=== PATIENT | male | born 1970 | race American Indian/Alaskan Native ===

== ENCOUNTER 2022-02-26 12:41 | Inpatient (IN) | payer SELFPAY ==
--- NOTE | 2022-02-26 13:08 | Consultation ---
Medications and Allergies Allergies Allergy/AdvReac Type Severity Reaction Status Date / Time No Known Allergies Allergy Verified 02/26/22 13:00 Physical Examination - Vital Signs Vital Signs: Vital Signs Temp Pulse Resp BP Pulse Ox 98 F 103 H 18 196/134 100 02/26/22 12:54 02/26/22 12:54 02/26/22 12:54 02/26/22 12:54 02/26/22 12:54 Assessment and Plan [facility] Consult Note # Demographics Consult Type: Acute Stroke Level 2 (4.5-24 hrs) Patient Location: Emergency Room First Name: Percy Last Name: Wero Date of : 1970 Age: 51 Gender: Male Facility: [facility] Time of Initial Page (): 02/26/2022, 12:59 Time of Return Call (): 02/26/2022, 12:59 # HPI History: 51M reportedly last well about 2 days ago. Patient is having pain and weakness in left arm and thumb on same side. Sensation is impaired on left arm and leg. # Scores Time of exam and NIHSS (): 02/26/2022, 13:05 Level of Consciousness 1a: [0] = Alert; keenly responsive LOC Questions 1b: [0] = Answers both questions correctly LOC Commands 1c: [0] = Performs both tasks correctly Best Gaze 2: [0] = Normal Visual 3: [0] = No visual loss Facial Palsy 4: [0] = Normal symmetrical movements Motor Arm Left 5a: [0] = No drift Motor Arm Right 5b: [0] = No drift Motor Leg Left 6a: [0] = No drift Motor Leg Right 6b: [0] = No drift Limb Ataxia 7: [0] = Absent Sensory 8: [1] = Otfb-st-[id number] sensory loss Best Language 9: [0] = No aphasia Dysarthria 10: [0] = Normal Extinction and Inattention 11: [0] = No abnormality NIHSS Total: 1 # Data Time Head CT personally read by me ( Time): 02/26/2022, 13:[address]: no bleed preliminarily reviewed by me, please refer to radiology read for official reading # Assessment Impression: Ischemic Stroke (Acute) # Plan Thrombolytic/Intervention: NOT IV Thrombolysis or IA Intervention candidate Thrombolytic Exclusion (< 3 hour window): time of onset unclear Thrombolytic Exclusion: > 4.5 hours Intraarterial Exclusion: clinically consistent with small vessel disease Imaging: (urgency: routine): MR Angiogram Head without contrast MR Angiogram Neck with contrast MRI Brain without contrast Diagnostic Test: echo with bubble study Medication: aspirin 81 mg PLUS clopidogrel (Plavix) 75 mg for 21 days, then monotherapy therafter start statin with goal of LDL < 70 Other: LDL < 70 If patient has any neurological deterioration please call me back immediately permissive hypertension telemetry monitoring I have discussed my recommendations with the referring provider Disposition: admit # Logistics Telemedicine: Interactive 2 way audio and visual telecommunication technology was utilized during this visit # Demographics First Name: Percy Last Name: Wero Facility: [facility]
[2022-02-26] MEDS ORDERED: CLOPIDOGREL 75 MG TAB PO ONE (13:23)
[2022-02-26] MEDS ORDERED: ASPIRIN 81 MG TAB CHEW PO ONE (13:23)
--- NOTE | 2022-02-26 13:27 | Cat Scan Report ---
CT HEAD WITHOUT CONTRAST INDICATION / CLINICAL INFORMATION: Stroke symptoms. Left-sided weakness TECHNIQUE: All CT scans at this location are performed using CT dose reduction for ALARA by means of automated e xposure control. COMPARISON: None available. FINDINGS: HEMORRHAGE: No evidence of intracranial hemorrhage or extra-axial fluid collection. EXTRA-AXIAL SPACES: Cortical sulci, sylvian fissures and basilar cisterns have an unremarkable appear ance. VENTRICULAR SYSTEM: The third and lateral ventricles are of normal size and configuration. CEREBRAL PARENCHYMA: No areas of abnormal brain parenchymal attenuation are identified. There is no i ndication of recent infarction. MIDLINE SHIFT OR HERNIATION: There is no mass effect. CEREBELLUM / BRAINSTEM: Brainstem and cerebellum have an unremarkable appearance. MIDLINE STRUCTURES:No abnormalities of the pituitary gland or pineal region are identified. INTRACRANIAL VESSELS:No abnormalities are identified on this noncontrast head CT. ORBITS: visualized portions of the orbits have an unremarkable appearance. SOFT TISSUES of HEAD: No significant abnormality. CALVARIUM: Evaluation of bone windows reveals no abnormalities. PARANASAL SINUSES / MASTOID AIR CELLS: Visualized portions of the paranasal sinuses are free from inf lammatory mucosal disease. Mastoid air cells are normally pneumatized. IMPRESSION: 1. No significant intracranial abnormality. No CT findings identified to suggest the presence of rece nt infarction. There is no indication of intercranial hemorrhage or mass lesion. Signer Name: Jaziel Hobbs MD Signed: 02/26/2022 1:23 PM Workstation Name: [id number]
--- NOTE | 2022-02-26 13:40 | XRay Report ---
CHEST 1 VIEW 02/26/2022 12:32 PM INDICATION / CLINICAL INFORMATION: r/o cva. COMPARISON: None available. FINDINGS: SUPPORT DEVICES: None. HEART / MEDIASTINUM: No significant abnormality. LUNGS / PLEURA: No significant pulmonary or pleural abnormality. No pneumothorax. ADDITIONAL FINDINGS: No significant additional findings. IMPRESSION: 1. No acute findings. Signer Name: Rahul Calabrese Jr, MD Signed: 02/26/2022 1:36 PM Workstation Name: [id number]
[2022-02-26 14:03] LABS: Basophils % (Auto) 1.2 % (0.0-1.8); Eosinophils # (Auto) 0.1 K/mm3 (0.0-0.4); Eosinophils % (Auto) 3.2 % (0.0-4.3); Hematocrit 49.3 % (35.5-45.6); Hemoglobin 16.3 gm/dl (11.8-15.2); Lymphocytes # (Auto) 0.8 K/mm3 (1.2-5.4); Lymphocytes % (Auto) 18.8 % (13.4-35.0); Mean Corpuscular HGB Conc 33 % (32-34); Mean Corpuscular Volume 94 fl (84-94); Monocytes # (Auto) 0.4 K/mm3 (0.0-0.8); Red Blood Count 5.23 M/mm3 (3.65-5.03); Red Cell Distribution Width 13.6 % (13.2-15.2)
[2022-02-26 14:07] LABS: Platelet Count 4 K/mm3 (140-440)
[2022-02-26 14:07] LABS: Mucus,Urine FEW /HPF
--- NOTE | 2022-02-26 14:14 | Emergency Department Report ---
ED General Adult HPI - General Chief complaint: Weakness Stated complaint: TINGLING LEFT ARM PAINFUL THUMB PUI?: No Time Seen by Provider: 02/26/22 13:00 Source: patient Mode of arrival: Ambulatory Limitations: No Limitations - History of Present Illness Initial comments: This is a 51-year-old male with medical history of hypertension who is not taking any medications as he is supposed to came to the ER today with concerns of left-sided upper extremity and lower extremity numbness for the past 2 days. Patient stated that the left-sided numbness starts from both tips of the finger to the left elbow. She states nothing makes it better nothing makes it worse and has been consistent. Patient denies any other symptoms. Patient current denies any fever chill night sweat dizziness blurred vision lightheadedness headache tinnitus ear pain runny nose sore throat loss of taste loss smell chest pain palpitation short breath cough abdominal pain nausea vomiting diarrhea constipation joint pain muscle pain new rash and heat or cold intolerance. Severity scale (0 -10): 2 - Related Data Allergies Allergy/AdvReac Type Severity Reaction Status Date / Time No Known Allergies Allergy Verified 02/26/22 13:00 ED Review of Systems ROS: Stated complaint: TINGLING LEFT ARM PAINFUL THUMB Other details as noted in HPI Comment: All other systems reviewed and negative Constitutional: no symptoms reported, see HPI Eyes: as per HPI ENT: as per HPI Respiratory: no symptoms reported, see HPI Cardiovascular: as per HPI Endocrine: no symptoms reported, see HPI Gastrointestinal: as per HPI Musculoskeletal: as per HPI Skin: as per HPI Neurological: numbness (Left upper extremity and lower extremity.). denies: headache, weakness, confusion, abnormal gait, vertigo Psychiatric: as per HPI Hematological/Lymphatic: as per HPI ED Past Medical Hx - Past Medical History Previous Medical History?: Yes Hx Hypertension: Yes (Patient is not taking his medication as he is supposed) ED Physical Exam - General Limitations: No Limitations General appearance: alert, in no apparent distress - Head Head exam: Present: atraumatic, normocephalic, normal inspection - Eye Eye exam: Present: normal appearance, PERRL, EOMI Pupils: Present: normal accommodation - ENT ENT exam: Present: normal exam, mucous membranes moist - Neck Neck exam: Present: normal inspection, full ROM - Respiratory Respiratory exam: Present: normal lung sounds bilaterally - Cardiovascular Cardiovascular Exam: Present: regular rate, normal rhythm, normal heart sounds - GI/Abdominal GI/Abdominal exam: Present: soft - Extremities Exam Extremities exam: Present: normal inspection, full ROM, normal capillary refill - Back Exam Back exam: Present: normal inspection, full ROM - Neurological Exam Neurological exam: Present: alert, oriented X3, CN II-XII intact - Psychiatric Psychiatric exam: Present: normal affect, normal mood - Skin Skin exam: Present: normal color - Other Other exam information: There is subjective numbness at the left upper and lower extremity I also did notice that there is left upper in flight technician strength slightly weaker than the right. ED Course Vital Signs 02/26/22 02/26/22 02/26/22 12:54 13:14 13:15 Temperature 98 F Pulse Rate 103 H 86 Respiratory 18 15 16 Rate Blood Pressure 183/119 Blood Pressure 196/134 [Right] O2 Sat by Pulse 100 94 93 Oximetry - Reevaluation(s) Reevaluation #1: 02/26/22 14:13 Per neurologist, CT unremarkable and seen the patient; recommend Plavix and also aspirin; they were given before the lab call back with critical value of platelet of 4. I will repeat CBC to reconfirm if platelet result is true vs false. Pending hospitalist to call back for admitting for further work up. 02/26/22 14:[address] Terrell who is aware of platele of 4 and would like a repeat of CBC to confirm. Dr. Terrell will come and evaluate the patient. Pending repeat platelet to see if patient okay to be admitted here as we do not have hemo/onco. Will transfuse platelet if its truely <10. 02/26/22 15:01 I will sign out my patient care to my colleague, Dr. Monk 02/26/22 15:08 SPOKE TO [facility] WHO WILL REACH OUT TO HOSPITALIST. ED Medical Decision Making - Lab Data Result diagrams: 02/26/22 13:16 02/26/22 13:16 Critical care attestation.: If time is entered above; I have spent that time in minutes in the direct care of this critically ill patient, excluding procedure time. ED Disposition Clinical Impression: TIA (transient ischemic attack), Thrombocytopenia Disposition: ADMITTED INPATIENT Is pt being admited?: Yes Does the pt Need Aspirin: Yes Condition: Stable Time of Disposition: 14:14
[2022-02-26 14:15] LABS: INR 0.92 (0.87-1.13); Partial Thromboplastin Time 26.1 Sec. (24.2-36.6); Thrombin Time 19.6 Sec. (15.1-19.6)
[2022-02-26 14:20] LABS: Color,Urine Yellow (Yellow)
[2022-02-26 14:23] LABS: Albumin 5.1 g/dL (3.9-5); Calcium 9.2 mg/dL (8.4-10.2)
[2022-02-26 14:33] LABS: Creatine Kinase MB 4.4 ng/mL (0.0-4.0)
[2022-02-26 16:10] LABS: Hematocrit 45.1 % (35.5-45.6); Hemoglobin 15.2 gm/dl (11.8-15.2); Mean Corpuscular HGB Conc 34 % (32-34); Mean Corpuscular Volume 94 fl (84-94); Platelet Count 4 K/mm3 (140-440); Red Blood Count 4.78 M/mm3 (3.65-5.03); Red Cell Distribution Width 13.8 % (13.2-15.2)
[2022-02-26] MEDS ORDERED: amLODIPine 5 MG TAB PO ONE (16:28)
[2022-02-26] MEDS ORDERED: SODIUM CHLORIDE 0.9% 500 ML 500 ML IV ONE ×2 (17:55→20:07)
--- NOTE | 2022-02-26 19:12 | Event Note ---
The pt was signed out to me by Dr. Laron Mendoza @ 03:08pm. Per his verbal report, patient has thrombocytopenia with a platelet count of 4000. He reviewed the case with Dr. Terrell who will evaluate the patient patient independently. Per the discussion is the patient's repeated platelet count remains 4000, patient will not be admitted here by him as patient will require hematology oncology services and per their discussion, the services not available at [facility]. Shortly thereafter, I spoke to Dr. Terrell. Patient's repeat CBC demonstrates persistent thrombocytopenia with a platelet count of 4000. Per his verbal report, the patient is not eligible for admission as he will need hematology oncology services and consultation, and the services are not acutely available at this hospital. I evaluated the patient independently. He is comfortable and well-appearing. He has multiple areas of ecchymosis on his extremities as well as his right upper back. Patient reports onset of ecchymoses over the past week, in addition to easy bleeding of his gums and bruising on his skin as well as persistent bleeding when he shaves his donaldson. Patient denies any other symptoms except for left thumb pain which she states has been present for the past week. He denies any new developing neurological symptoms at the time of signout and during my multiple reassessments of him. Throughout his ER course, the patient complained of having a "very dark" bowel movement. Digital rectal exam performed by me. Offshore Diver was emergency department nurse, Isabelle. Fecal occult specimen was sent to the lab and remains pending at the time of dictation of this note. ED Course: 06:57pm: [facility]: [facility] is on Diversion ; cannot accept the transfer of this patient 07:02pm: [facility]: activities coordinator reports hospital system is on total diversion except vascular and stemi emergencies; they can accept the transfer of this patient 07:04pm: [facility]: Per extrusion die coordinator, the hospital is on diversion except for trauma, stroke, and strep tricks emergency they can accept the transfer this patient 07:09pm: [facility] Transfer Center; On diversion x 1 month and accept the transfer this patient 07:11pm: [facility]: return call pending.; cannot accept the transfer of this patient 09:11pm: I was subsequently informed by a colleague that hematology oncology services are available at this hospital. I spoke to Angelica Manley, concerning the case. She confirms she is the nurse practitioner working with and that they will consult on the patient in the morning during his inpatient stay and are capable of providing necessary service for the patient for further evaluation of his thrombocytopenia. I informed her that the patient has been ordered and consented for transfusion of 2 units of platelets. However per report given to me by the patient's nurse, the patient's platelets will be arriving from the [facility] as they are not currently available at [facility]. She advises the patient undergo CT scan of his abdomen pelvis to evaluate for splenomegaly. No further recommendations provided at this time concerning emergent treatment and management of this patient from perspective of hematology oncology. MDM: 51-year-old male with a history of uncontrolled hypertension, medication noncompliance, presents for evaluation of left-sided numbness and left thumb pain and swelling. Patient was called as a stroke alert by Dr. Mendoza. See patient's electronic health record for his documented impression and plan as well as discussion with the stroke telemetry neurologist, prior to the start of this provider shift time. Patient remains persistently hypertensive. He was given amlodipine and labetalol with mild improvement of his blood pressure. He manifested no evidence of any acute hematological or neurovascular decompensation while under my care. Patient's case was subsequently reviewed with admitting toy parts former supervisor, . He has verbalized agreement to admit the patient to the hospitalist service. Please note that at the timing of the dictation of this note, the patient CT scan of abdomen pelvis with contrast remains pending.
--- NOTE | 2022-02-26 20:07 | XRay Report ---
LEFT FINGERS 3 VIEWS INDICATION / CLINICAL INFORMATION: atraumatic L thumb pain/swelling. COMPARISON: None available. FINDINGS: BONES / JOINT(S): No acute fracture or subluxation. Severe DJD first carpometacarpal joint. Mild/mode rate DJD first metatarsophalangeal joint. SOFT TISSUES: No significant abnormality. ADDITIONAL FINDINGS: None. Signer Name: Demond Nieves MD Signed: 02/26/2022 8:03 PM Workstation Name: [id number]
--- NOTE | 2022-02-26 20:51 | Consultation ---
History of Present Illness - Reason for Consult Consult date: 02/26/22 thrombocytopenia Requesting physician: WHITNEY YUSUF - History of Present Illness 51 YO Male with HTN, Medication Noncompliance, Obesity presents ED for evaluation. Patient reports "my arm is tingling and my thumb feels numb". Patient dates that he has experienced left arm tingling and left hand numbness over the past 2 days with persistent symptoms over the same timeframe. Patient knowledges noncompliance with medication and is lost to outpatient medical follow-up. Patient transported [facility] via private vehicle for further care and evaluation of the aforementioned symptoms. The patient was seen and evaluated emergency department all lab and studies reviewed. Patient found to have severe thrombocytopenia of uncertain etiology. Transfer center notified. Patient pending transfer to outside hospital for further care and evaluation. Patient has fever, chills, chest pain, palpitation, productive cough, skin rash, recent contact, known exposure to COVID-19. No prior admission for review. No medication listed for reconciliation. Past History Past Medical History: hypertension Past Surgical History: No surgical history, Other (Reviewed) Social history: single. denies: smoking, alcohol abuse, prescription drug abuse Family history: hypertension Medications and Allergies Allergies Allergy/AdvReac Type Severity Reaction Status Date / Time No Known Allergies Allergy Verified 02/26/22 13:00 Review of Systems Constitutional: no weight loss, no chills Ears, nose, mouth and throat: no ear pain, no tinnitis, no decreased hearing, no nose pain Cardiovascular: no chest pain, no rapid/irregular heart beat, no edema, no syncope, no lightheadedness Respiratory: no cough, no excessive sputum Gastrointestinal: no abdominal pain, no vomiting, no diarrhea, no change in bowel habits Genitourinary Male: no hematuria, no flank pain, no discharge, no urinary hesitancy, no nocturia Rectal: no pain, no incontinence, no bleeding Musculoskeletal: no neck stiffness, no neck pain, no arm numbness/tingling, no low back pain, no shooting leg pain Integumentary: no rash, no redness, no sores, no jaundice Neurological: numbness, tingling, no syncope, no tremors Psychiatric: no anxiety, no memory loss, no sleep disturbances, no insomnia, no hypersomnia, no change in appetite Endocrine: no cold intolerance, no polyphagia, no excessive thirst, no polydipsia, no polyuria Hematologic/Lymphatic: easy bruising, easy bleeding Allergic/Immunologic: no urticaria Exam - Constitutional Vitals: Temp Pulse Resp BP Pulse Ox 98 F 87 17 172/100 99 02/26/22 12:54 02/26/22 19:38 02/26/22 19:38 02/26/22 19:38 02/26/22 19:38 General appearance: Present: mild distress, obese - EENT Eyes: Present: PERRL ENT: hearing intact, clear oral mucosa - Neck Neck: Present: supple, normal ROM - Respiratory Respiratory effort: normal Respiratory: bilateral: CTA - Cardiovascular Heart Sounds: Present: S1 & S2. Absent: rub, click - Extremities Extremities: pulses symmetrical, No edema Peripheral Pulses: within normal limits - Abdominal General gastrointestinal: Present: soft, non-tender, non-distended, normal bowel sounds Male genitourinary: Present: normal - Integumentary Integumentary: Present: clear, warm, dry - Musculoskeletal Musculoskeletal: gait normal, strength equal bilaterally - Psychiatric Psychiatric: appropriate mood/affect, intact judgment & insight - Neurologic Neurologic: CNII-XII intact, moves all extremities Results - Labs CBC & Chem 7: 02/26/22 15:07 02/26/22 13:16 Labs: Abnormal lab results 02/26/22 02/26/22 02/26/22 Range/Units 13:16 13:16 13:16 WBC 4.0 L (4.5-11.0) K/mm3 RBC 5.23 H (3.65-5.03) M/mm3 Hgb 16.3 H (11.8-15.2) gm/dl Hct 49.3 H (35.5-45.6) % Plt Count 4 L* (140-440) K/mm3 Robertson % (Auto) 10.0 H (0.0-7.3) % Lymph # (Auto) 0.8 L (1.2-5.4) K/mm3 Creatinine 1.6 H (0.8-1.3) mg/dL Glucose 106 H (75-100) mg/dL Total Bilirubin 1.30 H (0.1-1.2) mg/dL Total Creatine Kinase 324 H (55-170) units/L CK-MB (CK-2) 4.4 H (0.0-4.0) ng/mL Albumin 5.1 H (3.9-5) g/dL 02/26/22 Range/Units 15:07 WBC 4.1 L (4.5-11.0) K/mm3 RBC (3.65-5.03) M/mm3 Hgb (11.8-15.2) gm/dl Hct (35.5-45.6) % Plt Count 4 L* (140-440) K/mm3 Robertson % (Auto) (0.0-7.3) % Lymph # (Auto) (1.2-5.4) K/mm3 Creatinine (0.8-1.3) mg/dL Glucose (75-100) mg/dL Total Bilirubin (0.1-1.2) mg/dL Total Creatine Kinase (55-170) units/L CK-MB (CK-2) (0.0-4.0) ng/mL Albumin (3.9-5) g/dL Assessment and Plan - Patient Problems (1) Thrombocytopenia Current Visit: Yes Status: Acute Plan to address problem: Patient pending transfer to tertiary [facility] for further care and evaluation of severe thrombocytopenia and hematology evaluation.
[2022-02-26] MEDS ORDERED: MORPHINE 2 MG/1 ML INJ IV PRN ×2 (21:52)
[2022-02-26] MEDS ORDERED: PROMETHAZINE 25 MG RECT SUPP PR PRN (21:52)
[2022-02-26] MEDS ORDERED: ONDANSETRON 4 MG/2 ML INJ IV PRN ×2 (21:52)
[2022-02-26] MEDS ORDERED: MAGNESIUM HYDROXIDE (MOM) ORAL LIQD UDC PO PRN ×2 (21:52)
[2022-02-26] MEDS ORDERED: ACETAMINOPHEN 325 MG TAB PO PRN ×2 (21:52)
[2022-02-26] MEDS ORDERED: MORPHINE 4 MG/1 ML INJ IV PRN ×2 (21:52)
[2022-02-26] MEDS ORDERED: METOCLOPRAMIDE 10 MG TAB PO PRN (21:52)
--- NOTE | 2022-02-26 22:07 | History and Physical Report ---
History of Present Illness Date of examination: 02/26/22 Date of admission: 02/26/2022 Chief complaint: Left sided Numbness History of present illness: 51-year-old -British male with known history of hypertension and was not been quite compliant with medication for quite some time presents to the emergency room today complaining of left sided numbness and paresthesia which started today. Numbness is more on the left thumb. He denies any difficulty with his speech and no difficulty with his gait. Patient otherwise denies any other symptoms today. Denies any headache or dizziness, denies any diaphoresis. Patient denies any sick contacts and no r ecent travel. Denies any contact with anyone with COVID-19. He has been fully vaccinated against COVID-19. Patient recently moved to [place] and has not established with any primary care physician and also does not have medical insurance at this time. He has also noticed some occasional bruises on red spots on his skin lately. Upon arrival in the emergency room today, blood pressure was quite elevated with systolic in the 180s and diastolic in the low 100s. He had a CT scan of the head which was unremarkable. Patient was evaluated by the teleneurologist and was deemed not to be a tPA candidate. Work-up in the emergency room today reveals a platelet count of 4. Creatinine was 1.6 and a mildly elevated creatinine kinase of 324. All other tests were essentially unremarkable. Heme-onc service was immediately consulted by ED ER physician and recommendation was to have a platelet transfusion. Patient will be further evaluated in the AM. Past History Past Medical History: hypertension Past Surgical History: No surgical history, Other (Reviewed) Social history: single, smoking (Current daily smoker), alcohol abuse, other (Uses Marijuana occasionally). denies: prescription drug abuse Family history: hypertension, other (Nonhodgkins lymphoma in Mother, Daughter of leukemia) Medications and Allergies Allergies Allergy/AdvReac Type Severity Reaction Status Date / Time No Known Allergies Allergy Verified 02/26/22 13:00 Active Meds: Active Medications Acetaminophen (Acetaminophen 325 Mg Tab) 650 mg PO Q4H PRN PRN Reason: Pain MILD(1-3)/Fever >100.5/JARAMILLO Acetaminophen (Acetaminophen 325 Mg Tab) 650 mg PO Q4H PRN PRN Reason: Pain, Mild (1-3) Atorvastatin Calcium (Atorvastatin 40 Mg Tab) 40 mg PO QHS CASIMIRO Bisacodyl (Bisacodyl 10 Mg Rect Supp) 10 mg PA QDAY PRN PRN Reason: Constipation Magnesium Hydroxide (Magnesium Hydroxide (Mom) Oral Liqd Udc) 30 ml PO Q4H PRN PRN Reason: Constipation Magnesium Hydroxide (Magnesium Hydroxide (Mom) Oral Liqd Udc) 30 ml PO Q4H PRN PRN Reason: Constipation Metoclopramide HCl (Metoclopramide 10 Mg Tab) 10 mg PO Q6H PRN PRN Reason: Nausea And Vomiting Morphine Sulfate (Morphine 2 Mg/1 Ml Inj) 2 mg IV Q4H PRN PRN Reason: Pain, Moderate (4-6) Morphine Sulfate (Morphine 4 Mg/1 Ml Inj) 4 mg IV Q4H PRN PRN Reason: Pain , Severe (7-10) Morphine Sulfate (Morphine 2 Mg/1 Ml Inj) 2 mg IV Q4H PRN PRN Reason: Pain, Moderate (4-6) Morphine Sulfate (Morphine 4 Mg/1 Ml Inj) 4 mg IV Q4H PRN PRN Reason: Pain , Severe (7-10) Ondansetron HCl (Ondansetron 4 Mg/2 Ml Inj) 4 mg IV Q8H PRN PRN Reason: Nausea And Vomiting Ondansetron HCl (Ondansetron 4 Mg/2 Ml Inj) 4 mg IV Q8H PRN PRN Reason: Nausea And Vomiting Promethazine HCl (Promethazine 25 Mg Rect Supp) 25 mg PA Q6H PRN PRN Reason: Nausea And Vomiting Sodium Chloride (Sodium Chloride 0.9% 10 Ml Flush Syringe) 10 ml IV BID CASIMIRO Sodium Chloride (Sodium Chloride 0.9% 10 Ml Flush Syringe) 10 ml IV PRN PRN PRN Reason: LINE FLUSH Sodium Chloride (Sodium Chloride 0.9% 10 Ml Flush Syringe) 10 ml INJ PRN PRN PRN Reason: LINE FLUSH Review of Systems Constitutional: no fever, no chills Ears, nose, mouth and throat: no nasal congestion, no sore throat Cardiovascular: no chest pain, no palpitations Respiratory: no cough, no shortness of breath Gastrointestinal: no abdominal pain, no nausea, no vomiting, no diarrhea Genitourinary Male: no dysuria, no hematuria, no flank pain Musculoskeletal: no neck pain, no low back pain Integumentary: no rash, no pruritis Neurological: parathesias, numbness (Left sided, More pronounced on left thumb), no headaches, no confusion Psychiatric: no anxiety, no depression Endocrine: no polyphagia, no polydipsia, no polyuria Exam - Constitutional Vitals: Temp Pulse Resp BP Pulse Ox 98 F 87 17 172/100 99 02/26/22 12:54 02/26/22 19:38 02/26/22 19:38 02/26/22 19:38 02/26/22 19:38 General appearance: Present: no acute distress, well-nourished - EENT Eyes: Present: PERRL, EOM intact. Absent: scleral icterus ENT: hearing intact, clear oral mucosa, dentition normal - Neck Neck: Present: supple, normal ROM - Respiratory Respiratory effort: normal Respiratory: bilateral: CTA - Cardiovascular Rhythm: regular Heart Sounds: Present: S1 & S2. Absent: gallop, systolic murmur, diastolic murmur, rub, click - Extremities Extremities: no ischemia, pulses intact, pulses symmetrical, No edema, normal temperature, normal color, Full ROM Peripheral Pulses: within normal limits - Abdominal General gastrointestinal: Present: soft, non-tender, non-distended, normal bowel sounds. Absent: mass - Integumentary Integumentary: Present: clear, warm, dry, normal turgor. Absent: rash - Musculoskeletal Musculoskeletal: strength equal bilaterally - Psychiatric Psychiatric: appropriate mood/affect, intact judgment & insight, memory intact, cooperative - Neurologic Neurologic: CNII-XII intact, no focal deficits, moves all extremities - Additional findings Additional findings: Skin: Multiple petechial spots on the chest and also over the back. HEART Score - HEART Score Troponin: Troponin T < 0.010 ng/mL (0.00-0.029) 02/26/22 13:16 Results - Labs CBC & Chem 7: 02/26/22 15:07 02/26/22 13:16 Labs: Abnormal lab results 02/26/22 02/26/22 02/26/22 Range/Units 13:16 13:16 13:16 WBC 4.0 L (4.5-11.0) K/mm3 RBC 5.23 H (3.65-5.03) M/mm3 Hgb 16.3 H (11.8-15.2) gm/dl Hct 49.3 H (35.5-45.6) % Plt Count 4 L* (140-440) K/mm3 [place] % (Auto) 10.0 H (0.0-7.3) % Lymph # (Auto) 0.8 L (1.2-5.4) K/mm3 Creatinine 1.6 H (0.8-1.3) mg/dL Glucose 106 H (75-100) mg/dL Total Bilirubin 1.30 H (0.1-1.2) mg/dL Total Creatine Kinase 324 H (55-170) units/L CK-MB (CK-2) 4.4 H (0.0-4.0) ng/mL Albumin 5.1 H (3.9-5) g/dL 02/26/22 Range/Units 15:07 WBC 4.1 L (4.5-11.0) K/mm3 RBC (3.65-5.03) M/mm3 Hgb (11.8-15.2) gm/dl Hct (35.5-45.6) % Plt Count 4 L* (140-440) K/mm3 [place] % (Auto) (0.0-7.3) % Lymph # (Auto) (1.2-5.4) K/mm3 Creatinine (0.8-1.3) mg/dL Glucose (75-100) mg/dL Total Bilirubin (0.1-1.2) mg/dL Total Creatine Kinase (55-170) units/L CK-MB (CK-2) (0.0-4.0) ng/mL Albumin (3.9-5) g/dL Assessment and Plan Assessment: 1. Left-sided numbness-etiology unclear. Patient to be worked up for possible CVA 2. Hypertensive urgency 3. Thrombocytopenia 4. Alcohol and tobacco abuse 5.PETE-baseline creatinine unknown Plan: 1. Patient admitted and placed on telemetry 2. We will schedule patient for MRI of the brain, echocardiogram and carotid Doppler 3. We will request neurology evaluation and recommendations. 4. We will also request heme-onc evaluation and recommendation 5. Patient to be transfused with platelet. We will monitor CBC. 6. Patient will be placed on antihypertensive we will monitor vital signs closely. 7. Consult placed to nephrology for evaluation of renal function. Avoid nephrotoxic agaents. DVT Prophylaxis: Sequential Compression Device Code Status: Full Code
--- NOTE | 2022-02-26 22:25 | Cat Scan Report ---
CT ABDOMEN AND PELVIS WITH CONTRAST INDICATION / CLINICAL INFORMATION: low platelets, abdominal pain, splenomegaly 100ml of [id number] . TECHNIQUE: Axial CT images were obtained through the abdomen and pelvis after 100 cc Omnipaque [address] scans at this location are performed using CT dose reduction for ALARA by means of automated exposure control. COMPARISON: None available. FINDINGS: LOWER CHEST: No significant abnormality. LIVER: A hypodensity is seen superiorly and centrally along the right hepatic lobe on image 35 of ser ies 2 measuring up to 1.5 cm, not clearly representing a simple cyst. Another smaller hypodensity wit h a more simple appearance located more inferiorly and laterally along the right hepatic lobe measure s 8 mm. No other significant abnormality. GALLBLADDER: No significant abnormality. BILE DUCTS: No significant abnormality. PANCREAS: No significant abnormality. SPLEEN: No significant abnormality. ADRENALS: No significant abnormality. RIGHT KIDNEY/URETER: 2 upper pole right renal cysts measure up to 1.6 cm without other significant ab normalities. LEFT KIDNEY/URETER: A simple appearing upper pole cyst measures up to 2.7 cm on image 61 of series 2 without other significant abnormalities. STOMACH/SMALL BOWEL: No significant abnormality. COLON: No significant abnormality. APPENDIX: No significant abnormality. PERITONEUM: No free fluid. No free air. No fluid collection. LYMPH NODES: No significant adenopathy. VASCULATURE: No significant abnormality. URINARY BLADDER: No significant abnormality. REPRODUCTIVE ORGANS: No significant abnormality. ADDITIONAL FINDINGS: None. BONES: No acute findings. There is moderate lumbar spondylosis. IMPRESSION: 1. No acute findings to explain the patient's complaints. 2. The spleen is normal in size. 3. Indeterminate right hepatic lobe hypodensities could represent cysts. A nonemergent MRI abdomen wi th and without contrast would be helpful for further characterization. 4. Additional findings as above. Signer Name: Raghav Rodriguez MD Signed: 02/26/2022 10:21 PM Workstation Name: [id number]
--- NOTE | 2022-02-26 22:52 | Hem/Onc Consultation ---
History of Present Illness - Reason for Consult Consult date: 02/26/22 Thrombocytopenia - History of Present Illness Heme data review This is a 51yo -[place] male who presented to [facility] ED with complaints of left sided numbness, more on left thumb, and paresthesia which started today P ast medical history of hypertension and noncompliance with medication. He denies difficulty with speech or gait. Denies headache dizziness, or diaphoresis. Denies sick contacts or recent travel. Denies any contact with anyone with COVID-19. He has been fully vaccinated against COVID-19. Patient recently moved to [place]. Patient also reports occasional bruises, red spots on his skin, and easy bleeding lately while shaving. Upon arrival in the emergency room today, blood pressure was elevated with systolic in the 180s and diastolic in the low 100s. CT scan of the head which was unremarkable. Patient was evaluated by the teleneurologist and was deemed not to be a tPA candidate. Work-up in the emergency room today reveals a platelet count of 4. Creatinine was 1.6 and a mildly elevated creatinine kinase of 324. All other tests were essentially unremarkable. Hematology/Oncology was consulted for evaluation of low platelets. DATA REVIEWED BELOW IMP: Thrombocytopenia, likely ITP Doubt heme malignancy Ischemic stroke ? PLAN: Transfuse 1 dose of plts STAT Start solu medrol 1mg/kg IV BID abd/pel CT to eval splenomegaly/liver cirrhosis Labs to include CBC w.dif in am, HBV, HIV, fibrinogen, cecilia, cardiolipin ab MRI Brain without contrast pending Standing order: -Transfuse 1 dose of platelets whenever plt count is less than 20 Formal consult to follow in AM. Laboratory Last Values WBC 4.1 K/mm3 (4.5-11.0) L 02/26/22 15:07 Hgb 15.2 gm/dl (11.8-15.2) 02/26/22 15:07 Hct 45.1 % (35.5-45.6) 02/26/22 15:07 MCV 94 fl (84-94) 02/26/22 15:07 Plt Count 4 K/mm3 (140-440) L* 02/26/22 15:07 [place] % (Auto) 10.0 % (0.0-7.3) H 02/26/22 13:16 Lymph # (Auto) 0.8 K/mm3 (1.2-5.4) L 02/26/22 13:16 PT 13.6 Sec. (12.2-14.9) 02/26/22 13:16 INR 0.92 (0.87-1.13) 02/26/22 13:16 APTT 26.1 Sec. (24.2-36.6) 02/26/22 13:16 Thrombin Time 19.6 Sec. (15.1-19.6) 02/26/22 13:16 Creatinine 1.6 mg/dL (0.8-1.3) H 02/26/22 13:16 Total Bilirubin 1.30 mg/dL (0.1-1.2) H 02/26/22 13:16 AST 25 units/L (5-40) 02/26/22 13:16 ALT 28 units/L (7-56) 02/26/22 13:16 Alkaline Phosphatase 55 units/L (35-129) 02/26/22 13:16 Total Creatine Kinase 324 units/L (55-170) H 02/26/22 13:16 CK-MB (CK-2) 4.4 ng/mL (0.0-4.0) H 02/26/22 13:16 Albumin 5.1 g/dL (3.9-5) H 02/26/22 13:16 Blood Type A POSITIVE 02/26/22 20:00 Antibody Screen Negative 02/26/22 20:00 Past History Past Medical History: hypertension Past Surgical History: No surgical history, Other (Reviewed) Social history: single, smoking (Current daily smoker), alcohol abuse, other (Uses Marijuana occasionally). denies: prescription drug abuse Family history: hypertension, other (Nonhodgkins lymphoma in Mother, Daughter of leukemia) Medications and Allergies Allergies Allergy/AdvReac Type Severity Reaction Status Date / Time No Known Allergies Allergy Verified 02/26/22 13:00 Active Meds: Active Medications Acetaminophen (Acetaminophen 325 Mg Tab) 650 mg PO Q4H PRN PRN Reason: Pain MILD(1-3)/Fever >100.5/[place]O Atorvastatin Calcium (Atorvastatin 40 Mg Tab) 40 mg PO QHS CASIMIRO Bisacodyl (Bisacodyl 10 Mg Rect Supp) 10 mg GA QDAY PRN PRN Reason: Constipation Magnesium Hydroxide (Magnesium Hydroxide (Mom) Oral Liqd Udc) 30 ml PO Q4H PRN PRN Reason: Constipation Methylprednisolone Sodium Succinate (Methylprednisolone Sod Succinate 125 Mg/2 Ml Inj) 100 mg IV Q12HR CASIMIRO Metoclopramide HCl (Metoclopramide 10 Mg Tab) 10 mg PO Q6H PRN PRN Reason: Nausea And Vomiting Morphine Sulfate (Morphine 2 Mg/1 Ml Inj) 2 mg IV Q4H PRN PRN Reason: Pain, Moderate (4-6) Morphine Sulfate (Morphine 4 Mg/1 Ml Inj) 4 mg IV Q4H PRN PRN Reason: Pain , Severe (7-10) Ondansetron HCl (Ondansetron 4 Mg/2 Ml Inj) 4 mg IV Q8H PRN PRN Reason: Nausea And Vomiting Promethazine HCl (Promethazine 25 Mg Rect Supp) 25 mg GA Q6H PRN PRN Reason: Nausea And Vomiting Sodium Chloride (Sodium Chloride 0.9% 10 Ml Flush Syringe) 10 ml IV BID CASIMIRO Sodium Chloride (Sodium Chloride 0.9% 10 Ml Flush Syringe) 10 ml IV PRN PRN PRN Reason: LINE FLUSH Exam - Constitutional Vitals: Last Vital Signs Temp 98 F 02/26/22 12:54 Pulse 87 02/26/22 19:38 Resp 17 02/26/22 19:38 BP 172/100 02/26/22 19:38 Pulse Ox 99 02/26/22 19:38 Results - Labs lab Results: Laboratory Results - last 24 hr 02/26/22 02/26/22 02/26/22 13:16 13:16 13:16 WBC 4.0 L RBC 5.23 H Hgb 16.3 H Hct 49.3 H MCV 94 MCH 31 MCHC 33 RDW 13.6 Plt Count 4 L* Lymph % (Auto) 18.8 [place] % (Auto) 10.0 H Eos % (Auto) 3.2 Baso % (Auto) 1.2 Lymph # (Auto) 0.8 L [place] # (Auto) 0.4 Eos # (Auto) 0.1 Baso # (Auto) 0.0 Seg Neutrophils % 66.8 Seg Neutrophils # 2.7 PT 13.6 INR 0.92 APTT 26.1 Thrombin Time 19.6 Sodium Potassium Chloride Carbon Dioxide Anion Gap BUN Creatinine Estimated GFR BUN/Creatinine Ratio Glucose Calcium Total Bilirubin AST ALT Alkaline Phosphatase Total Creatine Kinase 324 H CK-MB (CK-2) 4.4 H CK-MB (CK-2) Rel Index 1.3 Troponin T < 0.010 Total Protein Albumin Albumin/Globulin Ratio Urine Color Urine Turbidity Specific [place] (Man) Ur Protein (Man) Ur Ketones (Man) Ur Nitrite (Man) Ur Reducing Substances Urine Bilirubin (Man) Urine Ictotest Leukocyte Esterase (Man) Urine WBC (Auto) Urine RBC (Auto) U Epithel Cells (Auto) Urine RBC (Manual) Urine Mucus Blood Type Antibody Screen 02/26/22 02/26/22 02/26/22 13:16 13:49 15:07 WBC 4.1 L RBC 4.78 Hgb 15.2 Hct 45.1 MCV 94 MCH 32 MCHC 34 RDW 13.8 Plt Count 4 L* Lymph % (Auto) [place] % (Auto) Eos % (Auto) Baso % (Auto) Lymph # (Auto) [place] # (Auto) Eos # (Auto) Baso # (Auto) Seg Neutrophils % Seg Neutrophils # PT INR APTT Thrombin Time Sodium 142 Potassium 4.0 Chloride 105.1 Carbon Dioxide 22 Anion Gap 19 BUN 11 Creatinine 1.6 H Estimated GFR 46 BUN/Creatinine Ratio 7 Glucose 106 H Calcium 9.2 Total Bilirubin 1.30 H AST 25 ALT 28 Alkaline Phosphatase 55 Total Creatine Kinase CK-MB (CK-2) CK-MB (CK-2) Rel Index Troponin T Total Protein 7.1 Albumin 5.1 H Albumin/Globulin Ratio 2.6 Urine Color Yellow Urine Turbidity Clear Specific [place] (Man) 1.010 Ur Protein (Man) Negative Ur Ketones (Man) Negative Ur Nitrite (Man) Negative Ur Reducing Substances Not Reportable Urine Bilirubin (Man) Negative Urine Ictotest Not Reportable Leukocyte Esterase (Man) Negative Urine WBC (Auto) 1.0 Urine RBC (Auto) 3.0 U Epithel Cells (Auto) 1.0 Urine RBC (Manual) Negative Urine Mucus Few Blood Type Antibody Screen 02/26/22 20:00 WBC RBC Hgb Hct MCV MCH MCHC RDW Plt Count Lymph % (Auto) [place] % (Auto) Eos % (Auto) Baso % (Auto) Lymph # (Auto) [place] # (Auto) Eos # (Auto) Baso # (Auto) Seg Neutrophils % Seg Neutrophils # PT INR APTT Thrombin Time Sodium Potassium Chloride Carbon Dioxide Anion Gap BUN Creatinine Estimated GFR BUN/Creatinine Ratio Glucose Calcium Total Bilirubin AST ALT Alkaline Phosphatase Total Creatine Kinase CK-MB (CK-2) CK-MB (CK-2) Rel Index Troponin T Total Protein Albumin Albumin/Globulin Ratio Urine Color Urine Turbidity Specific [place] (Man) Ur Protein (Man) Ur Ketones (Man) Ur Nitrite (Man) Ur Reducing Substances Urine Bilirubin (Man) Urine Ictotest Leukocyte Esterase (Man) Urine WBC (Auto) Urine RBC (Auto) U Epithel Cells (Auto) Urine RBC (Manual) Urine Mucus Blood Type A POSITIVE Antibody Screen Negative
[2022-02-27] MEDS: methylPREDNISolone Sod Succinate 125 MG/2 ML INJ IV SCH ×3 (00:55→21:03)
[2022-02-27] MEDS ORDERED: SODIUM CHLORIDE 0.9% 500 ML 500 ML IV ONE (01:45)
[2022-02-27] MEDS: hydrALAZINE 20 MG/1 ML INJ IV PRN ×2 (04:23→09:18)
[2022-02-27] MEDS ORDERED: METOCLOPRAMIDE 10 MG TAB PO PRN (08:00)
[2022-02-27 08:06] LABS: BUN/Creatinine Ratio 8; Blood Urea Nitrogen 10 mg/dL (9-20); Calcium 9.7 mg/dL (8.4-10.2); Hemolysis Index 5
[2022-02-27] MEDS ORDERED: SODIUM CHLORIDE 0.9% 500 ML 500 ML ONE (08:56)
--- NOTE | 2022-02-27 10:13 | Hem/Onc Consultation ---
History of Present Illness - Reason for Consult Consult date: 02/27/22 low platelets - History of Present Illness Heme Consult Note Seen via [facility] CPT 42364 Dx ITP 51yo -[place] male Complaints of left sided numbness, more on left thumb, and paresthesia Pmhx of uncontrolled HTN Reports occasional bruises, red spots on his skin, and easy bleeding lately while shaving. Upon arrival to the ED had elevated BP, plts of 4,000, creatinine 1.6 CT scan of the head was unremarkable. Patient was evaluated by the teleneurologist. Pending brain MRI Hematology/Oncology following for low platelets. Patient examined at bedside, in no acute distress noted. Accompanied by at bedside. Both anxious to go home. Labs, scans, and plan discussed with patient and . Patient reports a tick bite a few months ago, but noticing symptoms related to Lymes disease 3 weeks ago. Now with petechiae, easy bruising, nose bleeds, gingival bleeding, and dark stools. CT Abd/Pel negative DATA REVIEWED BELOW IMP: Thrombocytopenia, likely ITP Coagulopathy, low fibrinogen APL is possible although doubt with normal wbc differential Ischemic stroke ? Lymes disease ? PLAN: Transfuse 1 dose of platelets STAT today Transfuse 10 units of cryo STAT today CBC post platelet transfusion today Continue solu medrol 1mg/kg IV BID Plan for IVIG if bleeding or plts refractory Labs to include FISH PML-ALMA DELIA to rule out APL Recommend ID consult for evaluation of potential Lyme's disease/recent tick bite . Follow HBV, cardiolipin ab MRI Brain, abd, pelvis pending Standing order: -Transfuse 1 dose of platelets whenever plt count is less than 20 Case d/w Dr. Lucian Fung. Laboratory Last Values WBC 4.1 K/mm3 (4.5-11.0) L 02/26/22 15:07 Hgb 15.2 gm/dl (11.8-15.2) 02/26/22 15:07 Hct 45.1 % (35.5-45.6) 02/26/22 15:07 MCV 94 fl (84-94) 02/26/22 15:07 Plt Count 4 K/mm3 (140-440) L* 02/26/22 15:07 Brown % (Auto) 10.0 % (0.0-7.3) H 02/26/22 13:16 Lymph # (Auto) 0.8 K/mm3 (1.2-5.4) L 02/26/22 13:16 Seg Neutrophils % 66.8 % (40.0-70.0) 02/26/22 13:16 Seg Neutrophils # 2.7 K/mm3 (1.8-7.7) 02/26/22 13:16 PT 13.6 Sec. (12.2-14.9) 02/26/22 13:16 INR 0.92 (0.87-1.13) 02/26/22 13:16 APTT 26.1 Sec. (24.2-36.6) 02/26/22 13:16 Thrombin Time 19.6 Sec. (15.1-19.6) 02/26/22 13:16 Fibrinogen 158 mg/dl (211-480) L 02/27/22 07:35 Creatinine 1.3 mg/dL (0.8-1.3) 02/27/22 07:35 Total Bilirubin 1.30 mg/dL (0.1-1.2) H 02/26/22 13:16 AST 25 units/L (5-40) 02/26/22 13:16 ALT 28 units/L (7-56) 02/26/22 13:16 Alkaline Phosphatase 55 units/L (35-129) 02/26/22 13:16 Lactate Dehydrogenase 511 units/L (91-180) H 02/26/22 21:34 Total Creatine Kinase 324 units/L (55-170) H 02/26/22 13:16 CK-MB (CK-2) 4.4 ng/mL (0.0-4.0) H 02/26/22 13:16 HIV 1&2 Antibody Rapid Non react (Non React) 02/27/22 07:35 HIV P24 Antigen Non react (Non React) 02/27/22 07:35 Blood Type A POSITIVE 02/26/22 20:00 Antibody Screen Negative 02/26/22 20:00 Direct Antiglob Test Negative 02/27/22 07:35 AMY, Poly Interpret Negative 02/27/22 07:35 Past History Past Medical History: hypertension Past Surgical History: No surgical history, Other (Reviewed) Social history: single, smoking (Current daily smoker), alcohol abuse, other (Uses Marijuana occasionally). denies: prescription drug abuse Family history: hypertension, other (Nonhodgkins lymphoma in Mother, Daughter of leukemia) Medications and Allergies Allergies Allergy/AdvReac Type Severity Reaction Status Date / Time No Known Allergies Allergy Verified 02/26/22 13:00 Home Medications Medication Instructions Recorded Confirmed Last Taken Type No Known Home Medications [No 02/27/22 02/27/22 Unknown History Reported Home Medications] Active Meds: Active Medications Acetaminophen (Acetaminophen 325 Mg Tab) 650 mg PO Q4H PRN PRN Reason: Pain MILD(1-3)/Fever >100.5/JARAMILLO Last Admin: 02/27/22 09:18 Dose: 650 mg Atorvastatin Calcium (Atorvastatin 40 Mg Tab) 40 mg PO QHS [facility] Last Admin: 02/26/22 22:00 Dose: 40 mg Bisacodyl (Bisacodyl 10 Mg Rect Supp) 10 mg CO QDAY PRN PRN Reason: Constipation Hydralazine HCl (Hydralazine 20 Mg/1 Ml Inj) 10 mg IV Q4HR PRN PRN Reason: Blood Pressure Last Admin: 02/27/22 09:18 Dose: 10 mg Magnesium Hydroxide (Magnesium Hydroxide (Mom) Oral Liqd Udc) 30 ml PO Q4H PRN PRN Reason: Constipation Methylprednisolone Sodium Succinate (Methylprednisolone Sod Succinate 125 Mg/2 Ml Inj) 100 mg IV Q12HR [facility] Last Admin: 02/27/22 09:15 Dose: 100 mg Metoclopramide HCl (Metoclopramide 10 Mg Tab) 5 mg PO Q6H PRN PRN Reason: Nausea And Vomiting Morphine Sulfate (Morphine 2 Mg/1 Ml Inj) 2 mg IV Q4H PRN PRN Reason: Pain, Moderate (4-6) Morphine Sulfate (Morphine 4 Mg/1 Ml Inj) 4 mg IV Q4H PRN PRN Reason: Pain , Severe (7-10) Ondansetron HCl (Ondansetron 4 Mg/2 Ml Inj) 4 mg IV Q8H PRN PRN Reason: Nausea And Vomiting Promethazine HCl (Promethazine 25 Mg Rect Supp) 25 mg CO Q6H PRN PRN Reason: Nausea And Vomiting Sodium Chloride (Sodium Chloride 0.9% 10 Ml Flush Syringe) 10 ml IV BID [facility] Last Admin: 02/27/22 09:15 Dose: 10 ml Sodium Chloride (Sodium Chloride 0.9% 10 Ml Flush Syringe) 10 ml IV PRN PRN PRN Reason: LINE FLUSH Exam - Constitutional Vitals: Last Vital Signs Temp 99.6 F 02/27/22 09:08 Pulse 104 H 02/27/22 09:07 Resp 18 02/27/22 09:07 BP 167/106 02/27/22 09:08 Pulse Ox 98 02/27/22 09:07 Results - Labs lab Results: Laboratory Results - last 24 hr 02/26/22 02/26/22 02/26/22 13:16 13:16 13:16 WBC 4.0 L RBC 5.23 H Hgb 16.3 H Hct 49.3 H MCV 94 MCH 31 MCHC 33 RDW 13.6 Plt Count 4 L* Lymph % (Auto) 18.8 Brown % (Auto) 10.0 H Eos % (Auto) 3.2 Baso % (Auto) 1.2 Lymph # (Auto) 0.8 L Brown # (Auto) 0.4 Eos # (Auto) 0.1 Baso # (Auto) 0.0 Seg Neutrophils % 66.8 Seg Neutrophils # 2.7 PT 13.6 INR 0.92 APTT 26.1 Thrombin Time 19.6 Fibrinogen Sodium Potassium Chloride Carbon Dioxide Anion Gap BUN Creatinine Estimated GFR BUN/Creatinine Ratio Glucose Calcium Magnesium Total Bilirubin AST ALT Alkaline Phosphatase Lactate Dehydrogenase Total Creatine Kinase 324 H CK-MB (CK-2) 4.4 H CK-MB (CK-2) Rel Index 1.3 Troponin T < 0.010 Total Protein Albumin Albumin/Globulin Ratio Urine Color Urine Turbidity Specific [place] (Man) Ur Protein (Man) Ur Ketones (Man) Ur Nitrite (Man) Ur Reducing Substances Urine Bilirubin (Man) Urine Ictotest Leukocyte Esterase (Man) Urine WBC (Auto) Urine RBC (Auto) U Epithel Cells (Auto) Urine RBC (Manual) Urine Mucus HIV 1&2 Antibody Rapid HIV P24 Antigen Blood Type Antibody Screen Direct Antiglob Test AMY, Poly Interpret 02/26/22 02/26/22 02/26/22 13:16 13:49 15:07 WBC 4.1 L RBC 4.78 Hgb 15.2 Hct 45.1 MCV 94 MCH 32 MCHC 34 RDW 13.8 Plt Count 4 L* Lymph % (Auto) Brown % (Auto) Eos % (Auto) Baso % (Auto) Lymph # (Auto) Brown # (Auto) Eos # (Auto) Baso # (Auto) Seg Neutrophils % Seg Neutrophils # PT INR APTT Thrombin Time Fibrinogen Sodium 142 Potassium 4.0 Chloride 105.1 Carbon Dioxide 22 Anion Gap 19 BUN 11 Creatinine 1.6 H Estimated GFR 46 BUN/Creatinine Ratio 7 Glucose 106 H Calcium 9.2 Magnesium Total Bilirubin 1.30 H AST 25 ALT 28 Alkaline Phosphatase 55 Lactate Dehydrogenase Total Creatine Kinase CK-MB (CK-2) CK-MB (CK-2) Rel Index Troponin T Total Protein 7.1 Albumin 5.1 H Albumin/Globulin Ratio 2.6 Urine Color Yellow Urine Turbidity Clear Specific [place] (Man) 1.010 Ur Protein (Man) Negative Ur Ketones (Man) Negative Ur Nitrite (Man) Negative Ur Reducing Substances Not Reportable Urine Bilirubin (Man) Negative Urine Ictotest Not Reportable Leukocyte Esterase (Man) Negative Urine WBC (Auto) 1.0 Urine RBC (Auto) 3.0 U Epithel Cells (Auto) 1.0 Urine RBC (Manual) Negative Urine Mucus Few HIV 1&2 Antibody Rapid HIV P24 Antigen Blood Type Antibody Screen Direct Antiglob Test AMY, Poly Interpret 02/26/22 02/26/22 02/27/22 20:00 21:34 07:35 WBC RBC Hgb Hct MCV MCH MCHC RDW Plt Count Lymph % (Auto) Brown % (Auto) Eos % (Auto) Baso % (Auto) Lymph # (Auto) Brown # (Auto) Eos # (Auto) Baso # (Auto) Seg Neutrophils % Seg Neutrophils # PT INR APTT Thrombin Time Fibrinogen Sodium 141 Potassium 3.6 Chloride 104.0 Carbon Dioxide 22 Anion Gap 19 BUN 10 Creatinine 1.3 Estimated GFR > 60 BUN/Creatinine Ratio 8 Glucose 135 H Calcium 9.7 Magnesium 2.00 Total Bilirubin AST ALT Alkaline Phosphatase Lactate Dehydrogenase 511 H Total Creatine Kinase CK-MB (CK-2) CK-MB (CK-2) Rel Index Troponin T Total Protein Albumin Albumin/Globulin Ratio Urine Color Urine Turbidity Specific [place] (Man) Ur Protein (Man) Ur Ketones (Man) Ur Nitrite (Man) Ur Reducing Substances Urine Bilirubin (Man) Urine Ictotest Leukocyte Esterase (Man) Urine WBC (Auto) Urine RBC (Auto) U Epithel Cells (Auto) Urine RBC (Manual) Urine Mucus HIV 1&2 Antibody Rapid HIV P24 Antigen Blood Type A POSITIVE Antibody Screen Negative Direct Antiglob Test AMY, Poly Interpret 02/27/22 02/27/22 02/27/22 07:35 07:35 07:35 WBC RBC Hgb Hct MCV MCH MCHC RDW Plt Count Lymph % (Auto) Brown % (Auto) Eos % (Auto) Baso % (Auto) Lymph # (Auto) Brown # (Auto) Eos # (Auto) Baso # (Auto) Seg Neutrophils % Seg Neutrophils # PT INR APTT Thrombin Time Fibrinogen 158 L Sodium Potassium Chloride Carbon Dioxide Anion Gap BUN Creatinine Estimated GFR BUN/Creatinine Ratio Glucose Calcium Magnesium Total Bilirubin AST ALT Alkaline Phosphatase Lactate Dehydrogenase Total Creatine Kinase CK-MB (CK-2) CK-MB (CK-2) Rel Index Troponin T Total Protein Albumin Albumin/Globulin Ratio Urine Color Urine Turbidity Specific [place] (Man) Ur Protein (Man) Ur Ketones (Man) Ur Nitrite (Man) Ur Reducing Substances Urine Bilirubin (Man) Urine Ictotest Leukocyte Esterase (Man) Urine WBC (Auto) Urine RBC (Auto) U Epithel Cells (Auto) Urine RBC (Manual) Urine Mucus HIV 1&2 Antibody Rapid Non react HIV P24 Antigen Non react Blood Type Antibody Screen Direct Antiglob Test Negative AMY, Poly Interpret Negative
[2022-02-27] MEDS ORDERED: NIFEdipine XL 30 MG TAB PO SCH (11:00)
--- NOTE | 2022-02-27 11:18 | Vascular Lab Report ---
DUPLEX DOPPLER ULTRASOUND CAROTID, BILATERAL INDICATION / CLINICAL INFORMATION: stroke. COMPARISON: None available. FINDINGS: RIGHT CAROTID: - PLAQUE ESTIMATE (%): < 50% - CCA velocity: 100 cm/sec. - ICA peak systolic velocity: 81 cm/sec. - ICA/CCA PSV Ratio: 0.8 Right Vertebral Artery: Antegrade flow. LEFT CAROTID: - PLAQUE ESTIMATE: < 50% - CCA velocity: 101 cm/sec. - ICA peak systolic velocity: 78 cm/sec. - ICA/CCA PSV Ratio: 0.8 Left Vertebral Artery: Antegrade flow. IMPRESSION: 1. Right Internal Carotid Artery: Less than 50% diameter stenosis. 2. Left Internal Carotid Artery: Less than 50% diameter stenosis. Velocity criteria are extrapolated from diameter data as defined by the Society of Radiologists [place] [facility] Consensus Conference, Radiology 2003; 229;340-346. NO STENOSIS (NORMAL) * Plaque = none; ICA PSV < 125 cm/sec; ICA/CCA PSV Ratio < 2.0 <50% STENOSIS * Plaque < 50%; ICA PSV < 125 cm/sec; ICA/CCA PSV Ratio < 2.0 50-69% STENOSIS * Plaque > 50%; ICA PSV = 125-230 cm/sec; ICA/CCA PSV Ratio = 2.0-4.0 >70% BUT <100% STENOSIS * Plaque > 50%; ICA PSV > 230 cm/sec; ICA/CCA PSV Ratio > 4.0 NEAR OCCLUSION * Plaque = visible lumen; ICA PSV = high/low/none; ICA/CCA PSV Ratio = variable TOTAL OCCLUSION * Plaque = no lumen; ICA PSV = none; ICA/CCA PSV Ratio = N/A Signer Name: Macho ePña MD Signed: 02/27/2022 11:14 AM Workstation Name: Banyan Branch
--- NOTE | 2022-02-27 11:21 | Progress Note ---
Assessment and Plan Assessment and plan: #Left-sided numbness of hand #CVA rule out -carotid doppler, TTE completed, pending results -MRI attempted, patient uncooperative; will reattempt later -lipid panel pending #Thrombocytopenia -Plt count 4, baseline unknown -CT head negative for bleeding; patient has petechiae and mucosal bleeds; no splenomegaly seen on CT -will transfuse for Plt <20 -etiology includes viral vs malignancy vs ITP -steroids started -Hematology/Oncology consulted, assistance appreciated #Incidental R hepatic hypodensities -seen on CT abdomen/pelvis -MRI abdomen ordered, patient claustrophobic will reattempt later #Hypertensive urgency #Hypertension #Medication non-compliance -patient with history of HTN in the past, has not taken medications in years -started nifedipine 30mg XL BID -will titrate BP medications as needed -will require medications and PCP follow up at discharge #Acute kidney injury -baseline creatinine unknown, SCr 1.6 -improved status post IVFs -likely secondary to dehydration/vasomotor nephropathy -Avoid nephrotoxins, renally dose medications -Nephrology consulted, assistance appreciated #Advanced care planning -Disease education conducted, care plan discussed, diagnoses discussed, prognosis discussed, and patient acknowledges understanding with care plan -Time: +30 min History Interval history: Patient reports improved weakness on the left side. We discussed current clinical findings. He reports that his daughter had leukemia and his dad had non-Hodgkin's lymphoma in the past. He has had bleeding from his mucous membranes and easy bruising. He denies past thrombocytopenia or related blood issues. Hospitalist Physical - Physical exam Narrative exam: GENERAL: Well-developed well-nourished. In no acute distress. HEENT: Normocephalic. Atraumatic. NECK: Supple. CHEST/LUNGS: CTAB on room air HEART/CARDIOVASCULAR: Mild tachycardia. No murmur, rubs or gallops appreciated. ABDOMEN: +BS. NT/ND. SKIN: healing ecchymoses NEURO: No focal motor deficit. Follows all commands. MUSCULOSKELETAL: No joint effusion EXTREMITIES: No cyanosis, clubbing or edema. PSYCH: Cooperative. - Constitutional Vitals: Temp Pulse Resp BP Pulse Ox 99.6 F 104 H 18 167/106 98 02/27/22 09:08 02/27/22 09:07 02/27/22 09:07 02/27/22 09:08 02/27/22 09:07 General appearance: Present: no acute distress, well-nourished HEART Score - HEART Score Troponin: Troponin T < 0.010 ng/mL (0.00-0.029) 02/26/22 13:16 Results - Labs CBC & Chem 7: 02/28/22 08:39 02/28/22 08:39 Labs: Laboratory Last Values WBC 4.1 K/mm3 (4.5-11.0) L 02/26/22 15:07 RBC 4.78 M/mm3 (3.65-5.03) 02/26/22 15:07 Hgb 15.2 gm/dl (11.8-15.2) 02/26/22 15:07 Hct 45.1 % (35.5-45.6) 02/26/22 15:07 MCV 94 fl (84-94) 02/26/22 15:07 MCH 32 pg (28-32) 02/26/22 15:07 MCHC 34 % (32-34) 02/26/22 15:07 RDW 13.8 % (13.2-15.2) 02/26/22 15:07 Plt Count 4 K/mm3 (140-440) L* 02/26/22 15:07 Lymph % (Auto) 18.8 % (13.4-35.0) 02/26/22 13:16 [place] % (Auto) 10.0 % (0.0-7.3) H 02/26/22 13:16 Eos % (Auto) 3.2 % (0.0-4.3) 02/26/22 13:16 Baso % (Auto) 1.2 % (0.0-1.8) 02/26/22 13:16 Lymph # (Auto) 0.8 K/mm3 (1.2-5.4) L 02/26/22 13:16 Young # (Auto) 0.4 K/mm3 (0.0-0.8) 02/26/22 13:16 Eos # (Auto) 0.1 K/mm3 (0.0-0.4) 02/26/22 13:16 Baso # (Auto) 0.0 K/mm3 (0.0-0.1) 02/26/22 13:16 Seg Neutrophils % 66.8 % (40.0-70.0) 02/26/22 13:16 Seg Neutrophils # 2.7 K/mm3 (1.8-7.7) 02/26/22 13:16 PT 13.6 Sec. (12.2-14.9) 02/26/22 13:16 INR 0.92 (0.87-1.13) 02/26/22 13:16 APTT 26.1 Sec. (24.2-36.6) 02/26/22 13:16 Thrombin Time 19.6 Sec. (15.1-19.6) 02/26/22 13:16 Fibrinogen 158 mg/dl (211-480) L 02/27/22 07:35 Sodium 141 mmol/L (137-145) 02/27/22 07:35 Potassium 3.6 mmol/L (3.6-5.0) 02/27/22 07:35 Chloride 104.0 mmol/L (98-107) 02/27/22 07:35 Carbon Dioxide 22 mmol/L (22-30) 02/27/22 07:35 Anion Gap 19 mmol/L 02/27/22 07:35 BUN 10 mg/dL (9-20) 02/27/22 07:35 Creatinine 1.3 mg/dL (0.8-1.3) 02/27/22 07:35 Estimated GFR > 60 ml/min 02/27/22 07:35 BUN/Creatinine Ratio 8 % 02/27/22 07:35 Glucose 135 mg/dL (75-100) H 02/27/22 07:35 Calcium 9.7 mg/dL (8.4-10.2) 02/27/22 07:35 Magnesium 2.00 mg/dL (1.7-2.3) 02/26/22 21:34 Total Bilirubin 1.30 mg/dL (0.1-1.2) H 02/26/22 13:16 AST 25 units/L (5-40) 02/26/22 13:16 ALT 28 units/L (7-56) 02/26/22 13:16 Alkaline Phosphatase 55 units/L (35-129) 02/26/22 13:16 Lactate Dehydrogenase 511 units/L (91-180) H 02/26/22 21:34 Total Creatine Kinase 324 units/L (55-170) H 02/26/22 13:16 CK-MB (CK-2) 4.4 ng/mL (0.0-4.0) H 02/26/22 13:16 CK-MB (CK-2) Rel Index 1.3 (0-4) 02/26/22 13:16 Troponin T < 0.010 ng/mL (0.00-0.029) 02/26/22 13:16 Total Protein 7.1 g/dL (6.3-8.2) 02/26/22 13:16 Albumin 5.1 g/dL (3.9-5) H 02/26/22 13:16 Albumin/Globulin Ratio 2.6 % 02/26/22 13:16 Urine Color Yellow (Yellow) 02/26/22 13:49 Urine Turbidity Clear (Clear) 02/26/22 13:49 Specific [place] (Man) 1.010 (1.003-1.030) 02/26/22 13:49 Ur Protein (Man) Negative mg/dL (Negative) 02/26/22 13:49 Ur Ketones (Man) Negative (Negative) 02/26/22 13:49 Ur Nitrite (Man) Negative (Negative) 02/26/22 13:49 Ur Reducing Substances Not Reportable 02/26/22 13:49 Urine Bilirubin (Man) Negative (Negative) 02/26/22 13:49 Urine Ictotest Not Reportable 02/26/22 13:49 Leukocyte Esterase (Man) Negative (Negative) 02/26/22 13:49 Urine WBC (Auto) 1.0 /HPF (0.0-6.0) 02/26/22 13:49 Urine RBC (Auto) 3.0 /HPF (0.0-6.0) 02/26/22 13:49 U Epithel Cells (Auto) 1.0 /HPF (0-13.0) 02/26/22 13:49 Urine RBC (Manual) Negative (Negative) 02/26/22 13:49 Urine Mucus Few /HPF 02/26/22 13:49 HIV 1&2 Antibody Rapid Non react (Non React) 02/27/22 07:35 HIV P24 Antigen Non react (Non React) 02/27/22 07:35 Blood Type A POSITIVE 02/26/22 20:00 Antibody Screen Negative 02/26/22 20:00 Direct Antiglob Test Negative 02/27/22 07:35 AMY, Poly Interpret Negative 02/27/22 07:35 Microbiology: Microbiology 02/26/22 Unknown Stool Stool Occult Blood (GERI) - Final [place]/IV: Voiding Method Toilet Active Medications - Current Medications Current Medications: Generic Name Dose Route Start Last Admin Trade Name Freq PRN Reason Stop Dose Admin Acetaminophen 650 mg 02/26/22 21:52 02/27/22 09:18 Acetaminophen 325 Mg Tab PO 650 mg Q4H PRN Administration Pain MILD(1-3)/Fever >100.5/JARAMILLO Atorvastatin Calcium 40 mg 02/26/22 22:00 02/26/22 22:00 Atorvastatin 40 Mg Tab PO 40 mg QHS CASIMIRO Administration Bisacodyl 10 mg 02/26/22 21:52 Bisacodyl 10 Mg Rect Supp SD QDAY PRN Constipation Hydralazine HCl 10 mg 02/26/22 22:48 02/27/22 09:18 Hydralazine 20 Mg/1 Ml Inj IV 10 mg Q4HR PRN Administration Blood Pressure Magnesium Hydroxide 30 ml 02/26/22 21:52 Magnesium Hydroxide (Mom) Oral Liqd Udc PO Q4H PRN Constipation Methylprednisolone Sodium Succinate 110 mg 02/27/22 22:00 Methylprednisolone Sod Succinate 125 Mg/2 Ml Inj IV Q12HR [facility] Metoclopramide HCl 5 mg 02/27/22 08:00 Metoclopramide 10 Mg Tab PO Q6H PRN Nausea And Vomiting Morphine Sulfate 2 mg 02/26/22 21:52 Morphine 2 Mg/1 Ml Inj IV Q4H PRN Pain, Moderate (4-6) Morphine Sulfate 4 mg 02/26/22 21:52 Morphine 4 Mg/1 Ml Inj IV Q4H PRN Pain , Severe (7-10) Nifedipine 30 mg 02/27/22 11:00 Nifedipine Xl 30 Mg Tab PO QDAY [facility] Ondansetron HCl 4 mg 02/26/22 21:52 Ondansetron 4 Mg/2 Ml Inj IV Q8H PRN Nausea And Vomiting Promethazine HCl 25 mg 02/26/22 21:52 Promethazine 25 Mg Rect Supp SD Q6H PRN Nausea And Vomiting Sodium Chloride 10 ml 02/26/22 22:00 02/27/22 09:15 Sodium Chloride 0.9% 10 Ml Flush Syringe IV 10 ml BID CASIMIRO Administration Sodium Chloride 10 ml 02/26/22 21:52 Sodium Chloride 0.9% 10 Ml Flush Syringe IV PRN PRN LINE FLUSH
[2022-02-27] MEDS ORDERED: LORazepam 2 MG/ML VIAL IV PRN (15:47)
[2022-02-27 16:54] LABS: Hematocrit 46.9 % (35.5-45.6); Hemoglobin 15.8 gm/dl (11.8-15.2); Mean Corpuscular HGB Conc 34 % (32-34); Mean Corpuscular Volume 94 fl (84-94); Red Cell Distribution Width 13.7 % (13.2-15.2)
[2022-02-27 17:07] LABS: Platelet Count 4 K/mm3 (140-440)
--- NOTE | 2022-02-27 18:43 | Consultation ---
History of Present Illness - Reason for Consult Consult date: 02/27/22 acute renal failure - History of Present Illness This is a 51-year-old man with history of hypertension who presented to the e mergency department with left-sided numbness and paresthesia. He was subsequently admitted for further work-up and nephrology was consulted for acute kidney injury. Patient does note frequent NSAID use. He denies history of kidney stones. He denies hematuria, dysuria and decreased urine output. Past History Past Medical History: hypertension Past Surgical History: No surgical history, Other (Reviewed) Social history: single, smoking (Current daily smoker), alcohol abuse, other (Uses Marijuana occasionally). denies: prescription drug abuse Family history: hypertension, other (Nonhodgkins lymphoma in Mother, Daughter of leukemia) Medications and Allergies Allergies Allergy/AdvReac Type Severity Reaction Status Date / Time No Known Allergies Allergy Verified 02/26/22 13:00 Home Medications Medication Instructions Recorded Confirmed Last Taken Type No Known Home Medications [No 02/27/22 02/27/22 Unknown History Reported Home Medications] Active Meds: Active Medications Acetaminophen (Acetaminophen 325 Mg Tab) 650 mg PO Q4H PRN PRN Reason: Pain MILD(1-3)/Fever >100.5/JARAMILLO Last Admin: 02/27/22 09:18 Dose: 650 mg Atorvastatin Calcium (Atorvastatin 40 Mg Tab) 40 mg PO QHS [facility] Last Admin: 02/26/22 22:00 Dose: 40 mg Bisacodyl (Bisacodyl 10 Mg Rect Supp) 10 mg MT QDAY PRN PRN Reason: Constipation Hydralazine HCl (Hydralazine 20 Mg/1 Ml Inj) 10 mg IV Q4HR PRN PRN Reason: Blood Pressure Last Admin: 02/27/22 09:18 Dose: 10 mg Lorazepam (Lorazepam 2 Mg/Ml Vial) 1 mg IV Q4H PRN PRN Reason: Anxiety Magnesium Hydroxide (Magnesium Hydroxide (Mom) Oral Liqd Udc) 30 ml PO Q4H PRN PRN Reason: Constipation Methylprednisolone Sodium Succinate (Methylprednisolone Sod Succinate 125 Mg/2 Ml Inj) 110 mg IV Q12HR [facility] Metoclopramide HCl (Metoclopramide 10 Mg Tab) 5 mg PO Q6H PRN PRN Reason: Nausea And Vomiting Morphine Sulfate (Morphine 2 Mg/1 Ml Inj) 2 mg IV Q4H PRN PRN Reason: Pain, Moderate (4-6) Morphine Sulfate (Morphine 4 Mg/1 Ml Inj) 4 mg IV Q4H PRN PRN Reason: Pain , Severe (7-10) Nifedipine (Nifedipine Xl 30 Mg Tab) 30 mg PO BID [facility] Ondansetron HCl (Ondansetron 4 Mg/2 Ml Inj) 4 mg IV Q8H PRN PRN Reason: Nausea And Vomiting Promethazine HCl (Promethazine 25 Mg Rect Supp) 25 mg MT Q6H PRN PRN Reason: Nausea And Vomiting Sodium Chloride (Sodium Chloride 0.9% 10 Ml Flush Syringe) 10 ml IV BID [facility] Last Admin: 02/27/22 09:15 Dose: 10 ml Sodium Chloride (Sodium Chloride 0.9% 10 Ml Flush Syringe) 10 ml IV PRN PRN PRN Reason: LINE FLUSH Review of Systems All systems: negative Integumentary: rash Neurological: weakness, parathesias Exam - Vital Signs Vital signs: Vital Signs Temp Pulse Resp BP Pulse Ox 98 F 103 H 18 196/134 100 02/26/22 12:54 02/26/22 12:54 02/26/22 12:54 02/26/22 12:54 02/26/22 12:54 - Physical Exam Narrative exam: Constitutional: no acute distress Head: NC/AT Neck: supple Lungs: clear to auscultation CV: RRR, no M/R/G Abdomen: soft, non-tender, bowel sounds present Back: nontender Extremities: no edema, pulses WNL Skin: intact Neuro: alert and oriented x4. Left-sided weakness. Results - Lab Results 02/27/22 16:12 02/27/22 07:35 Most recent lab results Calcium 9.7 mg/dL (8.4-10.2) 02/27/22 07:35 Magnesium 2.00 mg/dL (1.7-2.3) 02/26/22 21:34 Assessment and Plan Acute kidney injury Thrombocytopenia Renal function notable for improvement. Creatinine has improved from 1.6 to 1.3. Urinalysis unremarkable Patient does note extensive history of NSAID use, he was cautioned against further NSAID use. Check bladder scan Avoid nephrotoxins Hematology and urology note reviewed
[2022-02-27] MEDS ORDERED: IMMUNE GLOBULIN G/GLY/IGA AVG 46 10 GM/100 ML VIAL IV ONE (19:04)
[2022-02-27] MEDS ORDERED: IGA AVG IV SCH (21:00)
[2022-02-27] MEDS ORDERED: GLY IV SCH (21:00)
[2022-02-27] MEDS ORDERED: IMMUNE GLOBUL IV SCH (21:00)
[2022-02-27] MEDS ORDERED: [UNRECOGNIZED DRUG - OTHER] IV SCH (21:00)
[2022-02-27] MEDS: NIFEdipine XL 30 MG TAB PO SCH (21:03)
[2022-02-27 22:21] LABS: Total Cells Counted 100
[2022-02-27 22:22] LABS: Platelet Estimate Appears Decreased; RBC Morphology Normal
[2022-02-28] MEDS ORDERED: SODIUM CHLORIDE 0.9% 250ML 250 ML IV ONE (04:24)
[2022-02-28 09:02] LABS: Hematocrit 43.3 % (35.5-45.6); Hemoglobin 14.3 gm/dl (11.8-15.2); Mean Corpuscular HGB Conc 33 % (32-34); Mean Corpuscular Volume 95 fl (84-94); Red Blood Count 4.55 M/mm3 (3.65-5.03); Red Cell Distribution Width 13.9 % (13.2-15.2)
[2022-02-28] MEDS: methylPREDNISolone Sod Succinate 125 MG/2 ML INJ IV SCH (09:03)
[2022-02-28] MEDS: NIFEdipine XL 30 MG TAB PO SCH (09:03)
[2022-02-28 09:14] LABS: Platelet Count 10 K/mm3 (140-440)
[2022-02-28 09:20] LABS: BUN/Creatinine Ratio 12; Blood Urea Nitrogen 16 mg/dL (9-20); Calcium 9.3 mg/dL (8.4-10.2); Hemolysis Index 14
[2022-02-28 09:34] LABS: Chol/HDL Ratio 3.19 %; HDL Cholesterol 63 mg/dL (40-59); LDL Cholesterol,Direct 126 mg/dL (50-130)
--- NOTE | 2022-02-28 11:39 | Progress Note ---
Hospitalist Physical - Constitutional Vitals: Temp Pulse Resp BP Pulse Ox 98.1 F 102 H 18 155/107 98 02/28/22 06:47 02/28/22 06:47 02/28/22 06:47 02/28/22 06:47 02/28/22 08:52 General appearance: Present: no acute distress, well-nourished HEART Score - HEART Score Troponin: Troponin T < 0.010 ng/mL (0.00-0.029) 02/26/22 13:16 Results - Labs CBC & Chem 7: 02/28/22 08:39 02/28/22 08:39 Labs: Laboratory Last Values WBC 11.6 K/mm3 (4.5-11.0) H 02/28/22 08:39 RBC 4.55 M/mm3 (3.65-5.03) 02/28/22 08:39 Hgb 14.3 gm/dl (11.8-15.2) 02/28/22 08:39 Hct 43.3 % (35.5-45.6) 02/28/22 08:39 MCV 95 fl (84-94) H 02/28/22 08:39 MCH 31 pg (28-32) 02/28/22 08:39 MCHC 33 % (32-34) 02/28/22 08:39 RDW 13.9 % (13.2-15.2) 02/28/22 08:39 Plt Count 10 K/mm3 (140-440) L* D 02/28/22 08:39 Lymph % (Auto) 18.8 % (13.4-35.0) 02/26/22 13:16 [place] % (Auto) 10.0 % (0.0-7.3) H 02/26/22 13:16 Eos % (Auto) 3.2 % (0.0-4.3) 02/26/22 13:16 Baso % (Auto) 1.2 % (0.0-1.8) 02/26/22 13:16 Lymph # (Auto) 0.8 K/mm3 (1.2-5.4) L 02/26/22 13:16 [place] # (Auto) 0.4 K/mm3 (0.0-0.8) 02/26/22 13:16 Eos # (Auto) 0.1 K/mm3 (0.0-0.4) 02/26/22 13:16 Baso # (Auto) 0.0 K/mm3 (0.0-0.1) 02/26/22 13:16 Add Manual Diff Complete 02/27/22 16:12 Total Counted 100 02/27/22 16:12 Seg Neutrophils % Internet Application Developer 02/27/22 16:12 Band Neutrophils % 0 % 02/27/22 16:12 Lymphocytes % (Manual) 6.0 % (13.4-35.0) L 02/27/22 16:12 Reactive Lymphs % (Man) 0 % 02/27/22 16:12 Monocytes % (Manual) 1.0 % (0.0-7.3) 02/27/22 16:12 Metamyelocytes % 0 % 02/27/22 16:12 Myelocytes % 0 % 02/27/22 16:12 Promyelocytes % 0 % 02/27/22 16:12 Blast Cells % 0 % 02/27/22 16:12 Nucleated RBC % Not Reportable 02/27/22 16:12 Seg Neutrophils # 2.7 K/mm3 (1.8-7.7) 02/26/22 13:16 Seg Neutrophils # Man 8.0 K/mm3 (1.8-7.7) H 02/27/22 16:12 Band Neutrophils # 0.0 K/mm3 02/27/22 16:12 Lymphocytes # (Manual) 0.5 K/mm3 (1.2-5.4) L 02/27/22 16:12 Abs React Lymphs (Man) 0.0 K/mm3 02/27/22 16:12 Monocytes # (Manual) 0.1 K/mm3 (0.0-0.8) 02/27/22 16:12 Eosinophils # (Manual) 0.0 K/mm3 (0.0-0.4) 02/27/22 16:12 Basophils # (Manual) 0.0 K/mm3 (0.0-0.1) 02/27/22 16:12 Metamyelocytes # 0.0 K/mm3 02/27/22 16:12 Myelocytes # 0.0 K/mm3 02/27/22 16:12 Promyelocytes # 0.0 K/mm3 02/27/22 16:12 Blast Cells # 0.0 K/mm3 02/27/22 16:12 WBC Morphology Not Reportable 02/27/22 16:12 Hypersegmented Neuts Not Reportable 02/27/22 16:12 Hyposegmented Neuts Not Reportable 02/27/22 16:12 Hypogranular Neuts Not Reportable 02/27/22 16:12 Smudge Cells Not Reportable 02/27/22 16:12 Toxic Granulation Not Reportable 02/27/22 16:12 Toxic Vacuolation Not Reportable 02/27/22 16:12 Dohle Bodies Not Reportable 02/27/22 16:12 Pelger-Huet Anomaly Not Reportable 02/27/22 16:12 Mahsa Rods Not Reportable 02/27/22 16:12 Platelet Estimate Appears decreased 02/27/22 16:12 Clumped Platelets Not Reportable 02/27/22 16:12 Plt Clumps, EDTA Not Reportable 02/27/22 16:12 Large Platelets Not Reportable 02/27/22 16:12 Giant Platelets Not Reportable 02/27/22 16:12 Platelet Satelliting Not Reportable 02/27/22 16:12 Plt Morphology Comment Not Reportable 02/27/22 16:12 RBC Morphology Normal 02/27/22 16:12 Dimorphic RBCs Not Reportable 02/27/22 16:12 Polychromasia Not Reportable 02/27/22 16:12 Hypochromasia Not Reportable 02/27/22 16:12 Poikilocytosis Not Reportable 02/27/22 16:12 Anisocytosis Not Reportable 02/27/22 16:12 Microcytosis Not Reportable 02/27/22 16:12 Macrocytosis Not Reportable 02/27/22 16:12 Spherocytes Not Reportable 02/27/22 16:12 Pappenheimer Bodies Not Reportable 02/27/22 16:12 Sickle Cells Not Reportable 02/27/22 16:12 Target Cells Not Reportable 02/27/22 16:12 Tear Drop Cells Not Reportable 02/27/22 16:12 Ovalocytes Not Reportable 02/27/22 16:12 Helmet Cells Not Reportable 02/27/22 16:12 [place] Bodies Not Reportable 02/27/22 16:12 [place] Rings Not Reportable 02/27/22 16:12 Grace Cells Not Reportable 02/27/22 16:12 Bite Cells Not Reportable 02/27/22 16:12 Crenated Cell Not Reportable 02/27/22 16:12 Elliptocytes Not Reportable 02/27/22 16:12 Acanthocytes (Spur) Not Reportable 02/27/22 16:12 Rouleaux Not Reportable 02/27/22 16:12 Hemoglobin C Crystals Not Reportable 02/27/22 16:12 Schistocytes Not Reportable 02/27/22 16:12 Malaria parasites Not Reportable 02/27/22 16:12 [place]o Bodies Not Reportable 02/27/22 16:12 Hem Pathologist Commnt No 02/27/22 16:12 PT 13.6 Sec. (12.2-14.9) 02/26/22 13:16 INR 0.92 (0.87-1.13) 02/26/22 13:16 APTT 26.1 Sec. (24.2-36.6) 02/26/22 13:16 Thrombin Time 19.6 Sec. (15.1-19.6) 02/26/22 13:16 Fibrinogen 158 mg/dl (211-480) L 02/27/22 07:35 Sodium 138 mmol/L (137-145) 02/28/22 08:39 Potassium 3.8 mmol/L (3.6-5.0) 02/28/22 08:39 Chloride 101.6 mmol/L (98-107) 02/28/22 08:39 Carbon Dioxide 22 mmol/L (22-30) 02/28/22 08:39 Anion Gap 18 mmol/L 02/28/22 08:39 BUN 16 mg/dL (9-20) 02/28/22 08:39 Creatinine 1.3 mg/dL (0.8-1.3) 02/28/22 08:39 Estimated GFR > 60 ml/min 02/28/22 08:39 BUN/Creatinine Ratio 12 % 02/28/22 08:39 Glucose 163 mg/dL (75-100) H 02/28/22 08:39 Calcium 9.3 mg/dL (8.4-10.2) 02/28/22 08:39 Magnesium 2.00 mg/dL (1.7-2.3) 02/26/22 21:34 Total Bilirubin 1.30 mg/dL (0.1-1.2) H 02/26/22 13:16 AST 25 units/L (5-40) 02/26/22 13:16 ALT 28 units/L (7-56) 02/26/22 13:16 Alkaline Phosphatase 55 units/L (35-129) 02/26/22 13:16 Lactate Dehydrogenase 511 units/L (91-180) H 02/26/22 21:34 Total Creatine Kinase 324 units/L (55-170) H 02/26/22 13:16 CK-MB (CK-2) 4.4 ng/mL (0.0-4.0) H 02/26/22 13:16 CK-MB (CK-2) Rel Index 1.3 (0-4) 02/26/22 13:16 Troponin T < 0.010 ng/mL (0.00-0.029) 02/26/22 13:16 Total Protein 7.1 g/dL (6.3-8.2) 02/26/22 13:16 Albumin 5.1 g/dL (3.9-5) H 02/26/22 13:16 Albumin/Globulin Ratio 2.6 % 02/26/22 13:16 Triglycerides 80 mg/dL (2-149) 02/28/22 08:39 Cholesterol 201 mg/dL (50-199) H 02/28/22 08:39 LDL Cholesterol Direct 126 mg/dL (50-130) 02/28/22 08:39 HDL Cholesterol 63 mg/dL (40-59) H 02/28/22 08:39 Cholesterol/HDL Ratio 3.19 % 02/28/22 08:39 Urine Color Yellow (Yellow) 02/26/22 13:49 Urine Turbidity Clear (Clear) 02/26/22 13:49 Specific [place] (Man) 1.010 (1.003-1.030) 02/26/22 13:49 Ur Protein (Man) Negative mg/dL (Negative) 02/26/22 13:49 Ur Ketones (Man) Negative (Negative) 02/26/22 13:49 Ur Nitrite (Man) Negative (Negative) 02/26/22 13:49 Ur Reducing Substances Not Reportable 02/26/22 13:49 Urine Bilirubin (Man) Negative (Negative) 02/26/22 13:49 Urine Ictotest Not Reportable 02/26/22 13:49 Leukocyte Esterase (Man) Negative (Negative) 02/26/22 13:49 Urine WBC (Auto) 1.0 /HPF (0.0-6.0) 02/26/22 13:49 Urine RBC (Auto) 3.0 /HPF (0.0-6.0) 02/26/22 13:49 U Epithel Cells (Auto) 1.0 /HPF (0-13.0) 02/26/22 13:49 Urine RBC (Manual) Negative (Negative) 02/26/22 13:49 Urine Mucus Few /HPF 02/26/22 13:49 Coronavirus (PCR) Negative (Negative) 02/27/22 09:15 HIV 1&2 Antibody Rapid Non react (Non React) 02/27/22 07:35 HIV P24 Antigen Non react (Non React) 02/27/22 07:35 Blood Type A POSITIVE 02/26/22 20:00 Antibody Screen Negative 02/26/22 20:00 Direct Antiglob Test Negative 02/27/22 07:35 AMY, Poly Interpret Negative 02/27/22 07:35 [place]/IV: Voiding Method Toilet Active Medications - Current Medications Current Medications: Generic Name Dose Route Start Last Admin Trade Name Freq PRN Reason Stop Dose Admin Acetaminophen 650 mg 02/26/22 21:52 02/27/22 09:18 Acetaminophen 325 Mg Tab PO 650 mg Q4H PRN Administration Pain MILD(1-3)/Fever >100.5/JARAMILLO Atorvastatin Calcium 40 mg 02/26/22 22:00 02/27/22 21:03 Atorvastatin 40 Mg Tab PO 40 mg QHS CASIMIRO Administration Bisacodyl 10 mg 02/26/22 21:52 Bisacodyl 10 Mg Rect Supp VT QDAY PRN Constipation Hydralazine HCl 10 mg 02/26/22 22:48 02/27/22 09:18 Hydralazine 20 Mg/1 Ml Inj IV 10 mg Q4HR PRN Administration Blood Pressure Lorazepam 1 mg 02/27/22 15:47 Lorazepam 2 Mg/Ml Vial IV Q4H PRN Anxiety Magnesium Hydroxide 30 ml 02/26/22 21:52 Magnesium Hydroxide (Mom) Oral Liqd Udc PO Q4H PRN Constipation Methylprednisolone Sodium Succinate 110 mg 02/27/22 22:00 02/28/22 09:03 Methylprednisolone Sod Succinate 125 Mg/2 Ml Inj IV 110 mg Q12HR CASIMIRO Administration Metoclopramide HCl 5 mg 02/27/22 08:00 Metoclopramide 10 Mg Tab PO Q6H PRN Nausea And Vomiting Morphine Sulfate 2 mg 02/26/22 21:52 Morphine 2 Mg/1 Ml Inj IV Q4H PRN Pain, Moderate (4-6) Morphine Sulfate 4 mg 02/26/22 21:52 Morphine 4 Mg/1 Ml Inj IV Q4H PRN Pain , Severe (7-10) Nifedipine 30 mg 02/27/22 22:00 02/28/22 09:03 Nifedipine Xl 30 Mg Tab PO 30 mg BID CASIMIRO Administration Ondansetron HCl 4 mg 02/26/22 21:52 Ondansetron 4 Mg/2 Ml Inj IV Q8H PRN Nausea And Vomiting Promethazine HCl 25 mg 02/26/22 21:52 Promethazine 25 Mg Rect Supp VT Q6H PRN Nausea And Vomiting Sodium Chloride 10 ml 02/26/22 22:00 02/28/22 09:03 Sodium Chloride 0.9% 10 Ml Flush Syringe IV 10 ml BID CASIMIRO Administration Sodium Chloride 10 ml 02/26/22 21:52 Sodium Chloride 0.9% 10 Ml Flush Syringe IV PRN PRN LINE FLUSH Nutrition/Malnutrition Assess - Dietary Evaluation Nutrition/Malnutrition Findings: Nutrition Notes Start: 02/27/22 14:52 Freq: Status: Active Protocol: Document 02/27/22 14:52 LAKEISHA (Rec: 02/27/22 15:03 LAKEISHA [id number]) Nutrition Notes Need for Assessment generated from: MD Order,Education Initial or Follow up Brief Note Current Diagnosis Acute Kidney Injury, Hypertension Other Pertinent Diagnosis L-Sided Weakness r/o CVA, Thrombocytopenia. Current Diet Cardiac Diet (since B 02/27). Height 6 ft 2 in Weight 108.862 kg [place] Body Weight (kg) 86.36 BMI 30.8 Intake Prior to Admission Good Weight change and time frame Pt denies having loss body weight [place]. Weight Status Obese Subjective/Other Information RD consult for nutrition education assessment. Pt's PO intake of meals has been Good (100%) and well tolerated, according to ADL notes. Pt is on Room Air, O2 saturation @ 100%, according to Physical Assessment history notes. Pt still in critical condition , not a candidate for Nutrition Education at the time, will assess feasibility on F/U. Percent of energy/protein needs met: Prescribed Cardiac Diet provides for energy/protein needs (2,230 Kcal/85 g) during LOS. Nutrition Intervention Follow-Up By: 03/06/22 Additional Comments Nutrition education will be provided at F/U, if feasible. Continue monitoring food tolerance, %PO intake of meals , and BM.
[2022-02-28 11:58] VITALS: BP 182/117
--- NOTE | 2022-02-28 12:00 | Consultation ---
History of Present Illness - Reason for Consult Consult date: 02/28/22 recent tick bite Requesting physician: DOIRS HAMMER - History of Present Illness The patient is a 51-year-old male with hypertension, obesity, medical noncompliance, not on any medications was admitted to the hospital on 02/27/2020 with left upper extremity and lower extremity numbness for the last 2 days. Denies any fever or chills. Evaluated by telemetry neurology, no obvious stroke was identified, no tPA administered. CT head did not show any significant intracranial lesion. Upon evaluation, found to have leukopenia and severe thrombocytopenia. CT abdomen and pelvis was done, spleen was normal in size, indeterminate right hepatic lobe hypodensities representing possible cysts were noted, no other acute findings. Patient reported history of tick bite a few mon ths ago, hence infectious diseases was consulted. Had mild creatinine elevation which is better. AST and ALT are normal. Review of Systems: Per HPI Past History Past Medical History: hypertension Past Surgical History: No surgical history, Other (Reviewed) Social history: single, smoking (Current daily smoker), alcohol abuse, other (Uses Marijuana occasionally). denies: prescription drug abuse Family history: hypertension, other (Nonhodgkins lymphoma in Mother, Daughter of leukemia) Medications and Allergies Allergies Allergy/AdvReac Type Severity Reaction Status Date / Time No Known Allergies Allergy Verified 02/26/22 13:00 Home Medications Medication Instructions Recorded Confirmed Last Taken Type No Known Home Medications [No 02/27/22 02/27/22 Unknown History Reported Home Medications] Active Meds: Active Medications Acetaminophen (Acetaminophen 325 Mg Tab) 650 mg PO Q4H PRN PRN Reason: Pain MILD(1-3)/Fever >100.5/JARAMILLO Last Admin: 02/27/22 09:18 Dose: 650 mg Atorvastatin Calcium (Atorvastatin 40 Mg Tab) 40 mg PO QHS CASIMIRO Last Admin: 02/27/22 21:03 Dose: 40 mg Bisacodyl (Bisacodyl 10 Mg Rect Supp) 10 mg NC QDAY PRN PRN Reason: Constipation Hydralazine HCl (Hydralazine 20 Mg/1 Ml Inj) 10 mg IV Q4HR PRN PRN Reason: Blood Pressure Last Admin: 02/27/22 09:18 Dose: 10 mg Lorazepam (Lorazepam 2 Mg/Ml Vial) 1 mg IV Q4H PRN PRN Reason: Anxiety Magnesium Hydroxide (Magnesium Hydroxide (Mom) Oral Liqd Udc) 30 ml PO Q4H PRN PRN Reason: Constipation Methylprednisolone Sodium Succinate (Methylprednisolone Sod Succinate 125 Mg/2 Ml Inj) 110 mg IV Q12HR [facility] Last Admin: 02/28/22 09:03 Dose: 110 mg Metoclopramide HCl (Metoclopramide 10 Mg Tab) 5 mg PO Q6H PRN PRN Reason: Nausea And Vomiting Morphine Sulfate (Morphine 2 Mg/1 Ml Inj) 2 mg IV Q4H PRN PRN Reason: Pain, Moderate (4-6) Morphine Sulfate (Morphine 4 Mg/1 Ml Inj) 4 mg IV Q4H PRN PRN Reason: Pain , Severe (7-10) Nifedipine (Nifedipine Xl 30 Mg Tab) 30 mg PO BID [facility] Last Admin: 02/28/22 09:03 Dose: 30 mg Ondansetron HCl (Ondansetron 4 Mg/2 Ml Inj) 4 mg IV Q8H PRN PRN Reason: Nausea And Vomiting Promethazine HCl (Promethazine 25 Mg Rect Supp) 25 mg NC Q6H PRN PRN Reason: Nausea And Vomiting Sodium Chloride (Sodium Chloride 0.9% 10 Ml Flush Syringe) 10 ml IV BID [facility] Last Admin: 02/28/22 09:03 Dose: 10 ml Sodium Chloride (Sodium Chloride 0.9% 10 Ml Flush Syringe) 10 ml IV PRN PRN PRN Reason: LINE FLUSH Physical Examination - Physical Exam Narrative exam: Physical Exam: Constitutional: Alert, cooperative. No acute distress Head, Ears, Nose: Normocephalic, atraumatic. External ears, nose normal Eyes: Conjunctivae/corneas clear. No icterus. No ptosis. Neck: Supple, no meningeal signs Oral: dentition fair, no thrush Cardiovascular: S1, S2 + Respiratory: Good air entry, clear to auscultation bilaterally GI: Soft, non-tender; bowel sounds normal. No peritoneal signs Musculoskeletal: No pedal edema, no cyanosis. Skin: petechiae Hem/Lymphatic: No palpable cervical or supraclavicular nodes. No lymphangitis Psych: Mood ok. Affect normal Neurological: Awake, alert, oriented. No gross abnormality - Constitutional Vitals: Vital Signs Temp Pulse Resp BP Pulse Ox 98.7 F 99 H 18 182/117 94 02/28/22 11:55 02/28/22 11:55 02/28/22 11:55 02/28/22 11:55 02/28/22 11:55 Temperature -Last 24 Hours Temperature 98.7 F Temperature 98.1 F Temperature 99.0 F Temperature 98.8 F Temperature 98.9 F Temperature 98.6 F Temperature 98.4 F Temperature 98.2 F Temperature 98.4 F Temperature 98.2 F Temperature 98.9 F Results - Labs CBC & Chem 7: 02/28/22 08:39 02/28/22 08:39 Labs: Abnormal lab results 02/27/22 02/28/22 02/28/22 Range/Units 16:12 08:39 08:39 WBC 11.6 H (4.5-11.0) K/mm3 Hgb 15.8 H (11.8-15.2) gm/dl Hct 46.9 H (35.5-45.6) % MCV 95 H (84-94) fl Plt Count 4 L* 10 L* D (140-440) K/mm3 Lymphocytes % (Manual) 6.0 L (13.4-35.0) % Seg Neutrophils # Man 8.0 H (1.8-7.7) K/mm3 Lymphocytes # (Manual) 0.5 L (1.2-5.4) K/mm3 Glucose 163 H (75-100) mg/dL Cholesterol 201 H (50-199) mg/dL HDL Cholesterol 63 H (40-59) mg/dL - Imaging and Cardiology Chest x-ray: report reviewed, image reviewed (no pneumonia) Assessment and Plan Cultures: COVID-19 PCR: Negative HIV fourth-generation test: Negative A/P: 51-year-old male with hypertension, obesity, medical noncompliance, not on any medications was admitted to the hospital on 02/27/2020 with left upper extremity and lower extremity numbness for the last 2 days: #Acute thrombocytopenia: Hematology oncology following, suspecting possible ITP. HIV negative #Recent tick bite: No fever. Had leukopenia and thrombocytopenia on admission, now on high-dose steroids, s/p IVIG. No transaminitis to suggest Ehrlichia, Anaplasma. #Tingling numbness: neurology evaluated, MRI ordered Recs: empiric PO doxycycline 100 mg twice daily for 7 days Tickborne evaluation ordered: RMSF serology, Ehrlichia, Anaplasma serology, Lyme serology with reflex to Western blot Alejo Buckley MD, FACP, EM [facility] ([facility] O: [phone] F: [phone] C: [phone]
--- NOTE | 2022-02-28 12:39 | Event Note ---
Date: 02/28/22 Informed by social media community manager that patient left AMA.
--- NOTE | 2022-02-28 13:49 | Ultrasound Report ---
ULTRASOUND RENAL INDICATION / CLINICAL INFORMATION: PETE. COMPARISON: CT abdomen pelvis 02/26/2022. FINDINGS: RIGHT KIDNEY: Length = 10.8 cm. - Echogenicity: Normal. - Parenchymal Thickness: Normal. - Hydronephrosis: None. - Cyst / Mass: None. Previously described upper pole cysts are not identified. - Stones: None seen. LEFT KIDNEY: Length = 11.7 cm. - Echogenicity: Normal. - Parenchymal Thickness: Normal. - Hydronephrosis: None. - Cyst / Mass: None. Previously described upper pole cyst is not identified. - Stones: None seen. URINARY BLADDER: Partially decompressed. Anterior bladder wall thickening. FREE FLUID: None. ADDITIONAL FINDINGS: None. IMPRESSION: 1. No acute sonographic abnormality of the kidneys. 2. Mild anterior bladder wall thickening. Scribed by: Iram Bass RDMS, HAYLIE, JUANI Scribed: 02/28/2022 11:40 AM I have reviewed the images, agree with this report, and edited this report as needed. Signer Name: Ruddy Gordon MD Signed: 02/28/2022 1:45 PM Workstation Name: [id number]
--- NOTE | 2022-02-28 17:20 | Electrocardiograph Report ---
[facility] Test Date: 2022-02-26 Test Time: 13:34:37 Pat Name: MAGDALENA COOMBS Department: Room: A390 Gender: M Stitcher Feeder: [birth year] : 1970 Requested By: NYA BARRIENTOS Order Number: [id number] Reading MD: Michelle Welch Measurements Intervals [place] Rate: 78 P: 25 OR: 186 QRS: 36 QRSD: 105 T: 1 QT: 346 QTc: 394 Interpretive Statements Sinus rhythm Nonspecific ST and T wave abnormality No previous ECG available for comparison Electronically Signed On 02-28-2022 17:20:20 EDT by Michelle Welch
--- NOTE | 2022-03-01 09:01 | Discharge Summary ---
Providers - Providers Date of Admission: 02/26/22 21:55 Date of discharge: 02/28/22 Attending physician: DORIS HAMMER MD 02/26/22 21:26 Consult to Physician [CONS] Stat Comment: case reviewed via phone with WELDER RAILCAR MECHANICAngelica Consulting Provider: LIZBET FARAH Physician Instructions: Reason For Exam: thrombocytopenia 02/26/22 21:55 Consult to Dietitian/Nutrition [CONS] Routine Physician Instructions: Reason For Exam: Reason for Consult: Nutrition Recommendations Reason for Consult: Diet education Occupational Therapy Evaluate and Treat [CONS] Routine Comment: Reason For Exam: Neuro deficits Physical Therapy Evaluation and Treat [CONS] Routine Comment: Reason For Exam: Neuro deficits 02/26/22 22:30 Consult to Physician [CONS] Routine Comment: Consulting Provider: FERMIN ALEXANDER Physician Instructions: Reason For Exam: Left sided numbness 02/26/22 22:47 Consult to Physician [CONS] Routine Comment: Consulting Provider: GEOVANNA NELSON Physician Instructions: Reason For Exam: PETE 02/28/22 09:40 Consult to Physician [CONS] Routine Comment: Consulting Provider: RUSTY RODRÍGUEZ Physician Instructions: Reason For Exam: recent tick bite Primary care physician: EXPORT AGENT Hospitalization Reason for admission: CVA rule out; severe thrombocytopenia Condition: Good Hospital course: Patient is a 51-year-old male with history of hypertension who presented with numbness and paresthesia of the left thumb. He was evaluated by teleneurology and was not given tPA. Incidentally he was found to have a platelet level 4000 and creatinine of 1.6. Hematology was consulted and platelet transfusions were started. Initial CT of the head was negative for acute findings. CT of the abdomen pelvis showed indeterminate right hepatic lobe hypodensities and normal- sized spleen. Carotid Doppler showed less than 50% stenosis bilaterally. Echo cardiogram showed normal ejection fraction and no other acute findings. His platelet count improved to 5:10 units of platelets and 1 unit of cryoprecipitate. He was counseled extensively about the importance of staying until his platelet count was at acceptable level due to increased risk of spontaneous intracranial hemorrhage and other bleeds. Patient ultimately decided to leave [facility]. Disposition: LEFT AGAINST MEDICAL ADVICE Final Discharge Diagnosis (Prints w/discharge instructions): Left-sided numbness of hand. CVA ruled out. Thrombocytopenia. Incidental right hepatic hypodensities. Hypertensive urgency. Hypertension. Medication noncompliance. Acute kidney injury. Probable tickborne infection Time spent for discharge: 40 minutes Core Measure Documentation - Palliative Care Palliative Care/ Comfort Measures: Not Applicable - Core Measures Any of the following diagnoses?: none Exam - Physical Exam Narrative exam: GENERAL: Well-developed well-nourished. In no acute distress. HEENT: Normocephalic. Atraumatic. NECK: Supple. CHEST/LUNGS: CTAB on room air HEART/CARDIOVASCULAR: Mild tachycardia. No murmur, rubs or gallops appreciated. ABDOMEN: +BS. NT/ND. SKIN: healing ecchymoses NEURO: No focal motor deficit. Follows all commands. MUSCULOSKELETAL: No joint effusion EXTREMITIES: No cyanosis, clubbing or edema. PSYCH: Cooperative. - Constitutional Vitals: Temp Pulse Resp BP Pulse Ox 98.7 F 99 H 18 182/117 94 02/28/22 11:55 02/28/22 11:55 02/28/22 11:55 02/28/22 11:55 02/28/22 11:55 Plan Follow up with: PRIMARY MD KERRY [Primary Care Provider] - 7 Days Forms: AMA Form
[2022-03-03 04:59] LABS: Cardiolipin Ab IgA <2.0 APL-U/mL (<20.0); Cardiolipin Ab IgG <2.0 GPL-U/mL (<20.0); Cardiolipin Ab IgM <2.0 MPL-U/mL (<20.0)
== END 2022-02-28 13:23 | disposition left against medical advice (07) | DRG 305 ==
LOC: ED 12:41 → 3A 21:55
PROVIDERS: ADMIT Internal Medicine Geriatric Medicine; ATTEND Student in an Organized Health Care Education/Training Program
PROC: 30233M1 Transfusion of Nonautologous Plasma Cryoprecipitate into Peripheral Vein, Percutaneous Approach (ICD-10-PCS; principal; 2022-02-27)
PROC: 30233R1 Transfusion of Nonautologous Platelets into Peripheral Vein, Percutaneous Approach (ICD-10-PCS; 2022-02-27)
DX: I16.0 Hypertensive urgency (principal); N17.9 Acute kidney failure, unspecified; Z20.822 Contact with and (suspected) exposure to COVID-19; D68.9 Coagulation defect, unspecified; D69.6 Thrombocytopenia, unspecified; F10.10 Alcohol abuse, uncomplicated; Z72.0 Tobacco use; I10 Essential (primary) hypertension; Z91.19 Patient's noncompliance with other medical treatment and regimen; E66.9 Obesity, unspecified; Z82.49 Family history of ischemic heart disease and other diseases of the circulatory system; Z53.29 Procedure and treatment not carried out because of patient's decision for other reasons; Y90.9 Presence of alcohol in blood, level not specified
CPT/HCPCS: 36415; 70450; 71045; 74177; 76770; 80048; 80053; 80061; 81001; 82270; 82550; 82553; 83615; 83735; 84484; 85007; 85025; 85027; 85384; 85610; 85670; 85730; 86147; 86850; 86880; 86900; 86901; 86965; 87517; 87806; 93005; 93306; 93880; 96374; 99285; G0378; J3490; C8929; J0360; J1561; J2930; J7040; J7050; P9012; P9035; Q9967; U0003

== ENCOUNTER 2022-03-05 09:59 | Inpatient (IN) | payer SELFPAY ==
[2022-03-05 14:05] LABS: Basophils # (Auto) 0.1 K/mm3 (0.0-0.1); Basophils % (Auto) 1.7 % (0.0-1.8); Eosinophils # (Auto) 0.1 K/mm3 (0.0-0.4); Eosinophils % (Auto) 3.4 % (0.0-4.3); Hematocrit 40.6 % (35.5-45.6); Hemoglobin 14.3 gm/dl (11.8-15.2); Lymphocytes # (Auto) 0.8 K/mm3 (1.2-5.4); Lymphocytes % (Auto) 21.7 % (13.4-35.0); Mean Corpuscular HGB Conc 35 % (32-34); Mean Corpuscular Volume 93 fl (84-94); Monocytes # (Auto) 0.3 K/mm3 (0.0-0.8); Monocytes % (Auto) 8.3 % (0.0-7.3); Red Blood Count 4.38 M/mm3 (3.65-5.03); Red Cell Distribution Width 13.7 % (13.2-15.2)
[2022-03-05 14:18] LABS: INR 0.89 (0.87-1.13)
[2022-03-05 14:19] LABS: Partial Thromboplastin Time 25.5 Sec. (24.2-36.6)
[2022-03-05 14:30] LABS: Alanine Aminotransferase 27 units/L (7-56); Albumin 4.4 g/dL (3.9-5); BUN/Creatinine Ratio 9; Blood Urea Nitrogen 10 mg/dL (9-20); Calcium 9.1 mg/dL (8.4-10.2); Hemolysis Index 4
[2022-03-05] MEDS ORDERED: SODIUM CHLORIDE 0.9% 500 ML 500 ML IV ONE (15:44)
[2022-03-05 15:45] LABS: Platelet Count 5 K/mm3 (140-440)
--- NOTE | 2022-03-05 17:17 | Emergency Department Report ---
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 During his admission he received several units of platelets along with cryoprecipitate infusion. He returns today after labs reveal recurrent severe thrombocytopenia. He denies any active bleeding. Severity scale (0 -10): 0 - Related Data Home Medications Medication Instructions Recorded Confirmed Last Taken Doxycycline Hyclate [Lymepak] 100 mg PO BID 03/05/22 03/05/22 03/05/22 Previous Rx's Medication Instructions Recorded Last Taken Type Losartan [Cozaar] 100 mg PO QDAY #60 tablet 03/08/22 Unknown Rx NIFEdipine XL [Procardia Xl] 60 mg PO QDAY #30 tablet 03/08/22 Unknown Rx dexAMETHasone [Dexamethasone] 8 mg PO BID #12 tab 03/08/22 Unknown Rx Allergies Allergy/AdvReac Type Severity Reaction Status Date / Time No Known Allergies Allergy Verified 02/26/22 13:00 ED Review of Systems ROS: Stated complaint: LOEW PLATELET Other details as noted in HPI Constitutional: denies: chills, fever Respiratory: denies: cough, shortness of breath, wheezing Cardiovascular: denies: chest pain, palpitations Gastrointestinal: denies: abdominal pain, nausea, diarrhea Genitourinary: denies: urgency, dysuria Musculoskeletal: denies: back pain, joint swelling, arthralgia Skin: denies: rash, lesions Neurological: denies: headache, weakness, paresthesias Psychiatric: denies: anxiety, depression ED Past Medical Hx - Past Medical History Hx Hypertension: Yes (Patient is not taking his medication as he is supposed) Hx Congestive Heart Failure: No Hx Diabetes: No Hx Asthma: No Hx COPD: No - Social History Smoking Status: Current Every Day Smoker - Medications Home Medications: Home Medications Medication Instructions Recorded Confirmed Last Taken Type Doxycycline Hyclate [Lymepak] 100 mg PO BID 03/05/22 03/05/22 03/05/22 History Losartan [Cozaar] 100 mg PO QDAY #60 tablet 03/08/22 Unknown Rx NIFEdipine XL [Procardia Xl] 60 mg PO QDAY #30 tablet 03/08/22 Unknown Rx dexAMETHasone [Dexamethasone] 8 mg PO BID #12 tab 03/08/22 Unknown Rx ED Physical Exam - General Limitations: No Limitations General appearance: alert, in no apparent distress - Head Head exam: Present: atraumatic, normocephalic - Respiratory Respiratory exam: Present: normal lung sounds bilaterally. Absent: respiratory distress - Cardiovascular Cardiovascular Exam: Present: regular rate, normal rhythm, normal heart sounds - GI/Abdominal GI/Abdominal exam: Present: soft. Absent: distended, tenderness - Rectal Rectal exam: Present: deferred - Neurological Exam Neurological exam: Present: alert, oriented X3 - Psychiatric Psychiatric exam: Present: normal affect, normal mood - Skin Skin exam: Present: warm, dry, intact, normal color ED Course Vital Signs 03/05/22 03/05/22 03/05/22 10:44 15:41 15:45 Temperature 98.2 F Pulse Rate 75 98 H 95 H Respiratory 16 Rate Blood Pressure 138/93 Blood Pressure 184/128 [Right] O2 Sat by Pulse 96 99 100 Oximetry 03/05/22 03/05/22 03/05/22 16:01 16:15 16:31 Temperature Pulse Rate 90 89 85 Respiratory Rate Blood Pressure 138/93 148/91 148/91 Blood Pressure [Right] O2 Sat by Pulse 100 99 100 Oximetry 03/05/22 03/05/22 03/05/22 16:36 16:45 17:01 Temperature Pulse Rate 87 82 82 Respiratory 18 Rate Blood Pressure 138/91 142/94 Blood Pressure 148/91 [Right] O2 Sat by Pulse 99 99 99 Oximetry 03/05/22 03/05/22 03/05/22 17:15 17:31 17:45 Temperature Pulse Rate 84 75 74 Respiratory Rate Blood Pressure 149/100 149/100 141/91 Blood Pressure [Right] O2 Sat by Pulse 99 100 98 Oximetry 03/05/22 03/05/22 03/05/22 18:01 18:15 18:31 Temperature Pulse Rate 77 81 76 Respiratory Rate Blood Pressure 141/91 136/86 136/86 Blood Pressure [Right] O2 Sat by Pulse 99 98 98 Oximetry 03/05/22 03/05/22 03/05/22 18:45 19:01 19:15 Temperature Pulse Rate 76 78 75 Respiratory Rate Blood Pressure 145/92 145/92 145/95 Blood Pressure [Right] O2 Sat by Pulse 99 99 100 Oximetry 03/05/22 03/05/22 03/05/22 19:45 20:01 20:15 Temperature Pulse Rate 88 90 75 Respiratory Rate Blood Pressure 135/95 135/95 145/95 Blood Pressure [Right] O2 Sat by Pulse 98 100 99 Oximetry 03/05/22 03/05/22 03/05/22 20:27 20:30 20:40 Temperature Pulse Rate 77 74 72 Respiratory Rate Blood Pressure 135/95 135/95 147/100 Blood Pressure [Right] O2 Sat by Pulse 100 99 99 Oximetry 03/05/22 03/05/22 21:35 21:42 Temperature 98.2 F 98.3 F Pulse Rate 77 71 Respiratory 18 16 Rate Blood Pressure 148/102 169/94 Blood Pressure [Right] O2 Sat by Pulse 100 96 Oximetry ED Medical Decision Making - Lab Data Result diagrams: 03/08/22 08:15 03/05/22 12:55 - Medical Decision Making Platelet count 5. Will admit to hospitalist for recurrent thrombocytopenia/ITP. Critical care attestation.: If time is entered above; I have spent that time in minutes in the direct care of this critically ill patient, excluding procedure time. ED Disposition Clinical Impression: Thrombocytopenia Disposition: ADMITTED INPATIENT Is pt being admited?: Yes Condition: Stable
[2022-03-05] MEDS ORDERED: ACETAMINOPHEN 325 MG TAB PO PRN (17:33)
[2022-03-05] MEDS ORDERED: HYDROmorphone 0.5 MG/0.5 ML INJ IV PRN (17:33)
[2022-03-05] MEDS ORDERED: oxyCODONE /ACETAMINOPHEN 5-325MG TAB PO PRN (17:33)
[2022-03-05] MEDS ORDERED: ONDANSETRON 4 MG/2 ML INJ IV PRN (17:33)
--- NOTE | 2022-03-05 17:33 | History and Physical Report ---
History of Present Illness Chief complaint: My platelets are low History of present illness: 51 YO Male with nicotine dependence, ITP presents to ED for evaluation. Patient reports "my platelets are low. Patient states that he was seen and evaluated by his primary care physician today and was told to seek medical care. Patient admitted to [facility] on 02/26/2022 for presumed diagnosis of ITP and left AMA prior to completion of work-up and treatment plan. Patient transported to [facility] via private vehicle for further care and evaluation of the aforementioned symptoms. The patient was seen and evaluated emergency department. All lab and imaging studies reviewed. Patient found to have a platelet count of 5 while in the emergency department. Patient admitted to medical floor due to increased risk of worsening symptoms and for medical stabilization. Patient initiated on transfusion of platelets while in the emergency department. Patient denies fever, chills, chest pain, palpitation, productive cough, skin rash, recent contact, headache, blurred vision, trauma, active bleeding. Prior admission on 02/26/2022 reviewed. No medication listed at time of admission for reconciliation. Advanced care planning conducted in ED. Past History Past Medical History: other (See HPI) Past Surgical History: No surgical history, Other (Reviewed) Social history: smoking Family history: hypertension Medications and Allergies Allergies Allergy/AdvReac Type Severity Reaction Status Date / Time No Known Allergies Allergy Verified 02/26/22 13:00 Home Medications Medication Instructions Recorded Confirmed Last Taken Type No Known Home Medications [No 02/27/22 02/27/22 Unknown History Reported Home Medications] Review of Systems Constitutional: no weight loss, no weight gain, no fever, no chills Ears, nose, mouth and throat: no ear pain, no tinnitis, no decreased hearing, no nasal congestion Cardiovascular: no chest pain, no orthopnea, no rapid/irregular heart beat, no lightheadedness Respiratory: no cough, no cough with sputum, no excessive sputum, no shortness of breath Gastrointestinal: no abdominal pain, no nausea, no diarrhea, no constipation Genitourinary Male: no hematuria, no flank pain, no discharge, no urinary frequency, no urinary hesitancy, no nocturia Rectal: no pain, no incontinence, no bleeding Musculoskeletal: no neck stiffness, no neck pain, no low back pain, no shooting leg pain Integumentary: no rash, no redness, no wounds, no blisters Neurological: no head injury, no paralysis, no parathesias, no numbness, no seizures, no tremors, no confusion, no changes in smell/taste Psychiatric: no anxiety, no memory loss, no sleep disturbances, no insomnia, no change in libido, no hallucinations Endocrine: no cold intolerance, no heat intolerance, no polydipsia, no polyuria, no excessive sweating, no flushing, no weight change Hematologic/Lymphatic: no easy bruising, no easy bleeding Allergic/Immunologic: no urticaria Exam - Constitutional Vitals: Temp Pulse Resp BP Pulse Ox 98.2 F 87 18 148/91 99 03/05/22 10:44 03/05/22 16:36 03/05/22 16:36 03/05/22 16:36 03/05/22 16:36 General appearance: Present: mild distress - EENT Eyes: Present: PERRL ENT: hearing intact, clear oral mucosa - Neck Neck: Present: supple, normal ROM - Respiratory Respiratory effort: normal Respiratory: bilateral: CTA - Cardiovascular Heart Sounds: Present: S1 & S2. Absent: rub, click - Extremities Extremities: pulses symmetrical, No edema Peripheral Pulses: within normal limits - Abdominal General gastrointestinal: Present: soft, non-tender, non-distended, normal bowel sounds Male genitourinary: Present: normal - Integumentary Integumentary: Present: clear, warm, dry - Musculoskeletal Musculoskeletal: gait normal, strength equal bilaterally - Psychiatric Psychiatric: appropriate mood/affect, intact judgment & insight - Neurologic Neurologic: CNII-XII intact, moves all extremities Results - Labs CBC & Chem 7: 03/05/22 12:55 03/05/22 12:55 Labs: Abnormal lab results 03/05/22 03/05/22 Range/Units 12:55 12:55 WBC 3.5 L (4.5-11.0) K/mm3 MCH 33 H (28-32) pg MCHC 35 H (32-34) % Plt Count 5 L* (140-440) K/mm3 [place] % (Auto) 8.3 H (0.0-7.3) % Lymph # (Auto) 0.8 L (1.2-5.4) K/mm3 Chloride 107.8 H (98-107) mmol/L Assessment and Plan - Patient Problems (1) Acute ITP Current Visit: Yes Status: Acute Plan to address problem: IV Solu-Medrol twice daily as per hematology oncology recommendations, continue medical management, supportive care. (2) Nicotine dependence Current Visit: Yes Status: Acute Qualifiers: Nicotine product type: cigarettes Substance use status: in withdrawal Qualified Code(s): F17.213 - Nicotine dependence, cigarettes, with withdrawal Plan to address problem: Smoking cessation counseling, supportive care, behavior change counseled, +30 minutes. (3) DVT prophylaxis Current Visit: Yes Status: Acute Plan to address problem: SCD to bilateral lower extremities while in bed (4) Advance care planning Current Visit: Yes Status: Acute Plan to address problem: Disease education done, care plan discussed, diagnosis discussed, prognosis discussed, patient is full code. Patient knowledges understanding agree with care plan, +30 minutes. (5) Preventative health care Current Visit: Yes Status: Acute Plan to address problem: Patient counseled guarding medication compliance, follow-up with hematology oncology as outpatient, follow-up with primary care physician for all age and risk factor appropriate screening test. +30 minutes.
--- NOTE | 2022-03-05 20:48 | Progress Note ---
Assessment and Plan - Patient Problems (1) Acute ITP Current Visit: Yes Status: Acute (2) Nicotine dependence Current Visit: Yes Status: Acute Qualifiers: Nicotine product type: cigarettes Substance use status: in withdrawal Qualified Code(s): F17.213 - Nicotine dependence, cigarettes, with withdrawal (3) DVT prophylaxis Current Visit: Yes Status: Acute (4) Advance care planning Current Visit: Yes Status: Acute (5) Preventative health care Current Visit: Yes Status: Acute Hospitalist Physical - Constitutional Vitals: Temp Pulse Resp BP Pulse Ox 98.2 F 75 18 145/95 99 03/05/22 10:44 03/05/22 20:15 03/05/22 16:36 03/05/22 20:15 03/05/22 20:15 General appearance: Present: mild distress Results - Labs CBC & Chem 7: 03/05/22 12:55 03/05/22 12:55 Labs: Laboratory Last Values WBC 3.5 K/mm3 (4.5-11.0) L 03/05/22 12:55 RBC 4.38 M/mm3 (3.65-5.03) 03/05/22 12:55 Hgb 14.3 gm/dl (11.8-15.2) 03/05/22 12:55 Hct 40.6 % (35.5-45.6) 03/05/22 12:55 MCV 93 fl (84-94) 03/05/22 12:55 MCH 33 pg (28-32) H 03/05/22 12:55 MCHC 35 % (32-34) H 03/05/22 12:55 RDW 13.7 % (13.2-15.2) 03/05/22 12:55 Plt Count 5 K/mm3 (140-440) L* 03/05/22 12:55 Lymph % (Auto) 21.7 % (13.4-35.0) 03/05/22 12:55 [place] % (Auto) 8.3 % (0.0-7.3) H 03/05/22 12:55 Eos % (Auto) 3.4 % (0.0-4.3) 03/05/22 12:55 Baso % (Auto) 1.7 % (0.0-1.8) 03/05/22 12:55 Lymph # (Auto) 0.8 K/mm3 (1.2-5.4) L 03/05/22 12:55 [place] # (Auto) 0.3 K/mm3 (0.0-0.8) 03/05/22 12:55 Eos # (Auto) 0.1 K/mm3 (0.0-0.4) 03/05/22 12:55 Baso # (Auto) 0.1 K/mm3 (0.0-0.1) 03/05/22 12:55 Seg Neutrophils % 64.9 % (40.0-70.0) 03/05/22 12:55 Seg Neutrophils # 2.3 K/mm3 (1.8-7.7) 03/05/22 12:55 PT 13.0 Sec. (12.2-14.9) 03/05/22 12:55 INR 0.89 (0.87-1.13) 03/05/22 12:55 APTT 25.5 Sec. (24.2-36.6) 03/05/22 12:55 Sodium 141 mmol/L (137-145) 03/05/22 12:55 Potassium 3.7 mmol/L (3.6-5.0) 03/05/22 12:55 Chloride 107.8 mmol/L (98-107) H 03/05/22 12:55 Carbon Dioxide 25 mmol/L (22-30) 03/05/22 12:55 Anion Gap 12 mmol/L 03/05/22 12:55 BUN 10 mg/dL (9-20) 03/05/22 12:55 Creatinine 1.1 mg/dL (0.8-1.3) 03/05/22 12:55 Estimated GFR > 60 ml/min 03/05/22 12:55 BUN/Creatinine Ratio 9 % 03/05/22 12:55 Glucose 90 mg/dL (75-100) 03/05/22 12:55 Calcium 9.1 mg/dL (8.4-10.2) 03/05/22 12:55 Total Bilirubin 0.60 mg/dL (0.1-1.2) 03/05/22 12:55 AST 20 units/L (5-40) 03/05/22 12:55 ALT 27 units/L (7-56) 03/05/22 12:55 Alkaline Phosphatase 43 units/L (35-129) 03/05/22 12:55 Total Protein 6.7 g/dL (6.3-8.2) 03/05/22 12:55 Albumin 4.4 g/dL (3.9-5) 03/05/22 12:55 Albumin/Globulin Ratio 1.9 % 03/05/22 12:55 Blood Type A POSITIVE 03/05/22 16:35 Antibody Screen Negative 03/05/22 16:35 Active Medications - Current Medications Current Medications: Generic Name Dose Route Start Last Admin Trade Name Freq PRN Reason Stop Dose Admin Acetaminophen 650 mg 03/05/22 17:33 Acetaminophen 325 Mg Tab PO Q4H PRN Pain MILD(1-3)/Fever >100.5/JARAMILLO Hydromorphone HCl 0.5 mg 03/05/22 17:33 Hydromorphone 0.5 Mg/0.5 Ml Inj IV Q23H PRN Pain , Severe (7-10) Methylprednisolone Sodium Succinate 100 mg 03/05/22 22:00 Methylprednisolone Sod Succinate 40 Mg/1 Ml Inj IV Q12HR CASIMIRO Ondansetron HCl 4 mg 03/05/22 17:33 Ondansetron 4 Mg/2 Ml Inj IV Q8H PRN Nausea And Vomiting Oxycodone/Acetaminophen 1 tab 03/05/22 17:33 Oxycodone /Acetaminophen 5-325mg Tab PO Q16H PRN Pain, Moderate (4-6) Sodium Chloride 10 ml 03/05/22 22:00 Sodium Chloride 0.9% 10 Ml Flush Syringe IV BID CASIMIRO Sodium Chloride 10 ml 03/05/22 17:33 Sodium Chloride 0.9% 10 Ml Flush Syringe IV PRN PRN LINE FLUSH
[2022-03-05] MEDS ORDERED: methylPREDNISolone Sod Succinate 40 MG/1 ML INJ IV SCH (22:00)
[2022-03-05] MEDS ORDERED: cloNIDine 0.2 MG TAB PO ONE (23:47)
[2022-03-06] MEDS ORDERED: cloNIDine 0.2 MG TAB PO ONE (00:18)
[2022-03-06] MEDS ORDERED: LOSARTAN 50 MG TAB PO ONE (00:18)
[2022-03-06] MEDS ORDERED: DOXYCYCLINE 100 MG CAP PO ONE (00:19)
[2022-03-06] MEDS ORDERED: SODIUM CHLORIDE 0.9% 500 ML 500 ML ONE (01:20)
[2022-03-06] MEDS: methylPREDNISolone Sod Succinate 125 MG/2 ML INJ IV SCH ×2 (09:19→21:38)
--- NOTE | 2022-03-06 10:21 | Hem/Onc Consultation ---
History of Present Illness - Reason for Consult Consult date: 03/06/22 Thrombocytopenia - History of Present Illness Heme Consult Noted Seen via [facility] CPT 74219 Dx ITP This is a 51yo male, known to our service from previous admission, who presented to [facility] ED as recommended by PCP for low platelets. Past medical history of nicotine dependence and recent acute ITP. [facility] for diagnosis of ITP and left AMA prior to completion of work-up and treatment plan. Patient found to have a platelet count of 5 while in the emergency department. Patient initiated on transfusion of platelets. Patient denies fever, chills, chest pain, palpitation, productive cough, skin rash, recent contact, headache, blurred vision, trauma, active bleeding. Hematology was consulted for evaluation of thrombocytopenia. Patient examined at bedside, in no acute distress noted. No overt bleeding noted or reported, except for spontaneous bruise on lower lip. Patient reports recent tick bite and then started noticing petechiae, and now with joint pain. Reports extensive family history of autoimmune disorders and Lupus. Denies EGD/Colonoscopy in the past. DATA REVIEWED BELOW Cardiolipin ab negative HIV negative Occult blood stool + RMSF negative IMP: Acute ITP, s/p IVIG on 02/27 Positive occult blood stool on 02/26 Tick bite, joint pain, lymes disease ? PLAN: Solumedrol 1mg/kg BID IV Transfuse 1 dose of platelets whenever plts <20 Plan for Nplate if refractory to steroids and transfusions AM labs to include fibrinogen, GARCIA, FISH PML-ALMA DELIA to rule out APL Recommend ID consult for evaluation of potential Lyme's disease/recent tick bite Recommend GI evaluation for EGD/Colonoscopy Laboratory Last Values WBC 3.5 K/mm3 (4.5-11.0) L 03/05/22 12:55 Hgb 14.3 gm/dl (11.8-15.2) 03/05/22 12:55 Hct 40.6 % (35.5-45.6) 03/05/22 12:55 MCV 93 fl (84-94) 03/05/22 12:55 Plt Count 5 K/mm3 (140-440) L* 03/05/22 12:55 [place] % (Auto) 8.3 % (0.0-7.3) H 03/05/22 12:55 Lymph # (Auto) 0.8 K/mm3 (1.2-5.4) L 03/05/22 12:55 PT 13.0 Sec. (12.2-14.9) 03/05/22 12:55 INR 0.89 (0.87-1.13) 03/05/22 12:55 APTT 25.5 Sec. (24.2-36.6) 03/05/22 12:55 Creatinine 1.1 mg/dL (0.8-1.3) 03/05/22 12:55 Total Bilirubin 0.60 mg/dL (0.1-1.2) 03/05/22 12:55 AST 20 units/L (5-40) 03/05/22 12:55 ALT 27 units/L (7-56) 03/05/22 12:55 Alkaline Phosphatase 43 units/L (35-129) 03/05/22 12:55 Blood Type A POSITIVE 03/05/22 16:35 Antibody Screen Negative 03/05/22 16:35 Past History Past Medical History: other (See HPI) Past Surgical History: No surgical history, Other (Reviewed) Social history: smoking Family history: hypertension Medications and Allergies Allergies Allergy/AdvReac Type Severity Reaction Status Date / Time No Known Allergies Allergy Verified 02/26/22 13:00 Home Medications Medication Instructions Recorded Confirmed Last Taken Type Doxycycline Hyclate [Lymepak] 100 mg PO BID 03/05/22 03/05/22 03/05/22 History Olmesartan Medoxomil [Benicar] 20 mg PO DAILY 03/05/22 03/05/22 03/05/22 History cloNIDine [Catapres] 0.2 mg PO BID 03/05/22 03/05/22 03/05/22 History Active Meds: Active Medications Acetaminophen (Acetaminophen 325 Mg Tab) 650 mg PO Q4H PRN PRN Reason: Pain MILD(1-3)/Fever >100.5/JARAMILLO Hydromorphone HCl (Hydromorphone 0.5 Mg/0.5 Ml Inj) 0.5 mg IV Q23H PRN PRN Reason: Pain , Severe (7-10) Methylprednisolone Sodium Succinate (Methylprednisolone Sod Succinate 125 Mg/2 Ml Inj) 100 mg IV Q12HR CASIMIRO Last Admin: 03/06/22 09:19 Dose: 100 mg Ondansetron HCl (Ondansetron 4 Mg/2 Ml Inj) 4 mg IV Q8H PRN PRN Reason: Nausea And Vomiting Oxycodone/Acetaminophen (Oxycodone /Acetaminophen 5-325mg Tab) 1 tab PO Q16H PRN PRN Reason: Pain, Moderate (4-6) Sodium Chloride (Sodium Chloride 0.9% 10 Ml Flush Syringe) 10 ml IV BID CASIMIRO Last Admin: 03/06/22 09:19 Dose: 10 ml Sodium Chloride (Sodium Chloride 0.9% 10 Ml Flush Syringe) 10 ml IV PRN PRN PRN Reason: LINE FLUSH Exam - Constitutional Vitals: Last Vital Signs Temp 97.9 F 03/06/22 05:42 Pulse 68 03/06/22 05:42 Resp 18 03/06/22 05:42 BP 126/90 03/06/22 06:50 Pulse Ox 98 03/06/22 06:50 Results - Labs lab Results: Laboratory Results - last 24 hr 03/05/22 03/05/22 03/05/22 12:55 12:55 12:55 WBC 3.5 L RBC 4.38 Hgb 14.3 Hct 40.6 MCV 93 MCH 33 H MCHC 35 H RDW 13.7 Plt Count 5 L* Lymph % (Auto) 21.7 [place] % (Auto) 8.3 H Eos % (Auto) 3.4 Baso % (Auto) 1.7 Lymph # (Auto) 0.8 L [place] # (Auto) 0.3 Eos # (Auto) 0.1 Baso # (Auto) 0.1 Seg Neutrophils % 64.9 Seg Neutrophils # 2.3 PT 13.0 INR 0.89 APTT 25.5 Sodium 141 Potassium 3.7 Chloride 107.8 H Carbon Dioxide 25 Anion Gap 12 BUN 10 Creatinine 1.1 Estimated GFR > 60 BUN/Creatinine Ratio 9 Glucose 90 Calcium 9.1 Total Bilirubin 0.60 AST 20 ALT 27 Alkaline Phosphatase 43 Total Protein 6.7 Albumin 4.4 Albumin/Globulin Ratio 1.9 Blood Type Antibody Screen 03/05/22 16:35 WBC RBC Hgb Hct MCV MCH MCHC RDW Plt Count Lymph % (Auto) [place] % (Auto) Eos % (Auto) Baso % (Auto) Lymph # (Auto) [place] # (Auto) Eos # (Auto) Baso # (Auto) Seg Neutrophils % Seg Neutrophils # PT INR APTT Sodium Potassium Chloride Carbon Dioxide Anion Gap BUN Creatinine Estimated GFR BUN/Creatinine Ratio Glucose Calcium Total Bilirubin AST ALT Alkaline Phosphatase Total Protein Albumin Albumin/Globulin Ratio Blood Type A POSITIVE Antibody Screen Negative
--- NOTE | 2022-03-06 10:23 | Progress Note ---
Assessment and Plan Assessment and plan: #Thrombocytopenia #Probable ITP -Plt count 5, baseline 4 from prior admission -CT head negative for bleeding; patient has petechiae and mucosal bleeds; no splenomegaly seen on CT reviewed from 02/26 hospitalization -will transfuse for Plt <10 -etiology includes viral vs ITP -steroids started -Hematology/Oncology following, assistance appreciated #Hypertension, uncontrolled -patient recently started on clonidine 0.1mg BID and olmesartan 20mg -will continue clonidine and losartan 50mg #Advanced care planning -Disease education conducted, care plan discussed, diagnoses discussed, prognosis discussed, and patient acknowledges understanding with care plan -Time: +30 min History Interval history: No acute events overnight. Patient reports following up with a primary care provider since leaving [place] last week and was started on blood pressure medications. He has had a light bleed which resolved on its own. He denies any other abnormal bruising or bleeding. He is concerned that his family has a history of lupus and would like to be tested. He has no complaints at this time . Hospitalist Physical - Physical exam Narrative exam: GENERAL: Well-developed well-nourished. In no acute distress. HEENT: Normocephalic. Atraumatic. NECK: Supple. CHEST/LUNGS: CTAB on room air HEART/CARDIOVASCULAR: RRR. No murmur, rubs or gallops appreciated. ABDOMEN: +BS. NT/ND. SKIN: Ecchymoses at bilateral upper extremities. NEURO: No focal motor deficit. Follows all commands and is ambulatory. MUSCULOSKELETAL: No joint effusion EXTREMITIES: No cyanosis, clubbing or edema. PSYCH: Cooperative. - Constitutional Vitals: Temp Pulse Resp BP Pulse Ox 97.9 F 68 18 126/90 98 03/06/22 05:42 03/06/22 05:42 03/06/22 05:42 03/06/22 06:50 03/06/22 06:50 General appearance: Present: mild distress Results - Labs CBC & Chem 7: 03/05/22 12:55 03/05/22 12:55 Labs: Laboratory Last Values WBC 3.5 K/mm3 (4.5-11.0) L 03/05/22 12:55 RBC 4.38 M/mm3 (3.65-5.03) 03/05/22 12:55 Hgb 14.3 gm/dl (11.8-15.2) 03/05/22 12:55 Hct 40.6 % (35.5-45.6) 03/05/22 12:55 MCV 93 fl (84-94) 03/05/22 12:55 MCH 33 pg (28-32) H 03/05/22 12:55 MCHC 35 % (32-34) H 03/05/22 12:55 RDW 13.7 % (13.2-15.2) 03/05/22 12:55 Plt Count 5 K/mm3 (140-440) L* 03/05/22 12:55 Lymph % (Auto) 21.7 % (13.4-35.0) 03/05/22 12:55 Wayne % (Auto) 8.3 % (0.0-7.3) H 03/05/22 12:55 Eos % (Auto) 3.4 % (0.0-4.3) 03/05/22 12:55 Baso % (Auto) 1.7 % (0.0-1.8) 03/05/22 12:55 Lymph # (Auto) 0.8 K/mm3 (1.2-5.4) L 03/05/22 12:55 Wayne # (Auto) 0.3 K/mm3 (0.0-0.8) 03/05/22 12:55 Eos # (Auto) 0.1 K/mm3 (0.0-0.4) 03/05/22 12:55 Baso # (Auto) 0.1 K/mm3 (0.0-0.1) 03/05/22 12:55 Seg Neutrophils % 64.9 % (40.0-70.0) 03/05/22 12:55 Seg Neutrophils # 2.3 K/mm3 (1.8-7.7) 03/05/22 12:55 PT 13.0 Sec. (12.2-14.9) 03/05/22 12:55 INR 0.89 (0.87-1.13) 03/05/22 12:55 APTT 25.5 Sec. (24.2-36.6) 03/05/22 12:55 Sodium 141 mmol/L (137-145) 03/05/22 12:55 Potassium 3.7 mmol/L (3.6-5.0) 03/05/22 12:55 Chloride 107.8 mmol/L (98-107) H 03/05/22 12:55 Carbon Dioxide 25 mmol/L (22-30) 03/05/22 12:55 Anion Gap 12 mmol/L 03/05/22 12:55 BUN 10 mg/dL (9-20) 03/05/22 12:55 Creatinine 1.1 mg/dL (0.8-1.3) 03/05/22 12:55 Estimated GFR > 60 ml/min 03/05/22 12:55 BUN/Creatinine Ratio 9 % 03/05/22 12:55 Glucose 90 mg/dL (75-100) 03/05/22 12:55 Calcium 9.1 mg/dL (8.4-10.2) 03/05/22 12:55 Total Bilirubin 0.60 mg/dL (0.1-1.2) 03/05/22 12:55 AST 20 units/L (5-40) 03/05/22 12:55 ALT 27 units/L (7-56) 03/05/22 12:55 Alkaline Phosphatase 43 units/L (35-129) 03/05/22 12:55 Total Protein 6.7 g/dL (6.3-8.2) 03/05/22 12:55 Albumin 4.4 g/dL (3.9-5) 03/05/22 12:55 Albumin/Globulin Ratio 1.9 % 03/05/22 12:55 Blood Type A POSITIVE 03/05/22 16:35 Antibody Screen Negative 03/05/22 16:35 Yeboah/IV: Voiding Method Toilet Active Medications - Current Medications Current Medications: Generic Name Dose Route Start Last Admin Trade Name Freq PRN Reason Stop Dose Admin Acetaminophen 650 mg 03/05/22 17:33 Acetaminophen 325 Mg Tab PO Q4H PRN Pain MILD(1-3)/Fever >100.5/JARAMILLO Hydromorphone HCl 0.5 mg 03/05/22 17:33 Hydromorphone 0.5 Mg/0.5 Ml Inj IV Q23H PRN Pain , Severe (7-10) Methylprednisolone Sodium Succinate 100 mg 03/06/22 10:00 03/06/22 09:19 Methylprednisolone Sod Succinate 125 Mg/2 Ml Inj IV 100 mg Q12HR CASIMIRO Administration Ondansetron HCl 4 mg 03/05/22 17:33 Ondansetron 4 Mg/2 Ml Inj IV Q8H PRN Nausea And Vomiting Oxycodone/Acetaminophen 1 tab 03/05/22 17:33 Oxycodone /Acetaminophen 5-325mg Tab PO Q16H PRN Pain, Moderate (4-6) Sodium Chloride 10 ml 03/05/22 22:00 03/06/22 09:19 Sodium Chloride 0.9% 10 Ml Flush Syringe IV 10 ml BID CASIMIRO Administration Sodium Chloride 10 ml 03/05/22 17:33 Sodium Chloride 0.9% 10 Ml Flush Syringe IV PRN PRN LINE FLUSH
[2022-03-06] MEDS: cloNIDine 0.2 MG TAB PO SCH ×2 (11:45→21:37)
[2022-03-06] MEDS: LOSARTAN 50 MG TAB PO SCH (11:46)
[2022-03-06 16:09] LABS: Hematocrit 40.1 % (35.5-45.6); Hemoglobin 14.1 gm/dl (11.8-15.2); Mean Corpuscular HGB Conc 35 % (32-34); Mean Corpuscular Volume 94 fl (84-94); Red Blood Count 4.29 M/mm3 (3.65-5.03); Red Cell Distribution Width 13.5 % (13.2-15.2)
[2022-03-06 16:23] LABS: Platelet Count 7 K/mm3 (140-440)
[2022-03-06 16:58] LABS: Band Neutrophils # (Manual) 0.1 K/mm3; Basophils % (Manual) 0 % (0.0-1.8); Eosinophils % (Manual) 0 % (0.0-4.3); Monocytes % (Manual) 0 % (0.0-7.3); Total Cells Counted 100
[2022-03-06 17:06] LABS: Platelet Estimate Consistent w Auto
[2022-03-07 06:02] LABS: Hematocrit 40.7 % (35.5-45.6); Hemoglobin 13.6 gm/dl (11.8-15.2); Mean Corpuscular HGB Conc 34 % (32-34); Mean Corpuscular Volume 93 fl (84-94); Red Blood Count 4.35 M/mm3 (3.65-5.03); Red Cell Distribution Width 13.6 % (13.2-15.2)
[2022-03-07 06:06] LABS: Platelet Count 4 K/mm3 (140-440)
[2022-03-07] MEDS ORDERED: SODIUM CHLORIDE 0.9% 500 ML 500 ML IV NR (07:15)
--- NOTE | 2022-03-07 07:57 | Progress Note ---
Assessment and Plan Assessment and plan: History of present illness: 51 YO Male with nicotine dependence, ITP presents to ED for evaluation. Patient reports "my platelets are low. Patient states that he was seen and evaluated by his primary care physician today and was told to seek medical care. Patient admitted to [facility] on 02/26/2022 for presumed diagnosis of ITP and left AMA prior to completion of work-up and treatment plan. Patient transported to [facility] via private vehicle for further care and evaluation of the aforementioned symptoms. The patient was seen and evaluated emergency department. All lab and imaging studies reviewed. Patient found to have a platelet count of 5 while in the emergency department. Patient admitted to medical floor due to increased risk of worsening symptoms and for medical stabilization. Patient initiated on transfusion of platelets while in the emergency department. Patient denies fever, chills, chest pain, palpitation, productive cough, skin rash, recent contact, headache, blurred vision, trauma, active bleeding. Prior admission on 02/26/2022 reviewed. No medication listed at time of admission for reconciliation. Advanced care planning conducted in ED. Hospital Course: 03/07: patient hemodynamically stable. Denies any active bleeding or bruising .Very fixated on SLE diagnosis. plt count remains extremely low: 4K. ID consultation placed in light of recent tick bite. Will order lyme ab but doubt this is truly lyme disease. ITP diagnosis possible however appears plt count not responding to multiple platelet transfusions or solumedrol. May need bone marrow bx however after discussing with hematology, will give trial of steroids and pos sibly romiplostim prior to considering this. Assessment and Plan: #Thrombocytopenia #Probable ITP - no prior history of thrombocytopenia. echymosis noted on bl upper extremities. -Plt count 5, baseline 4 from prior admission, currently s/p 3/4 bags plt admin. - admin only one bag platelet per day. However would be futile if truly ITP as they are consumed by T-cell response. -CT head negative for bleeding; patient has petechiae and mucosal bleeds; no spl enomegaly seen on CT reviewed from 02/26 hospitalization - cardiolipin ab titres low from prior admission. - HIV negative from prior admission - RMSF negative - patient has family history of blood disorders/autoimmune. Cousins have SLE, father had NHL -will transfuse for Plt <10 -Leading dx currently ITP. Low plt could have been precipitated by tick bite. -steroids started -Hematology/Oncology following, assistance appreciated. Considering romiplostim (Nplate) - not active bleeding currently, had hemoccult last admission which was positive however this test is fairly unreliable. patient does not report black/bright red colored stools or hematuria this admission. Currently hemoglobin/vitals stable. Will hold off on GI consultation at this time unless active bleeding noted. Did recommend he undergo screening c-scope at the very least as an outpatient. - patient may need a bone marrow biopsy. however will hold off to see if plt respond to steroids. Recent Tick Bite - unclear if this is a presentation of lyme given recent tick bite. do not see a targetoid rash. not complaining of any prototypical symptomology other than swelling/tenderness at the site of the tick bite. - not in window for prohylaxis...however, per patient account, his primary had made him complete a 7 day course of doxycycline. - complaints of joint pain - lyme ab ordered. - ID consultation #Hypertension, uncontrolled -patient recently started on clonidine 0.1mg BID and olmesartan 20mg -will continue clonidine and losartan 50mg #leukocytosis -demargination from steroid admin #Advanced care planning -Disease education conducted, care plan discussed, diagnoses discussed, prognosis discussed, and patient acknowledges understanding with care plan -Time: +30 min History Interval history: No acute complaints this AM. Denies any active bleeding or bruising .Very fixa elinor on SLE diagnosis. Hospitalist Physical - Physical exam Narrative exam: GENERAL: Well-developed well-nourished. In no acute distress. HEENT: Normocephalic. Atraumatic. NECK: Supple. CHEST/LUNGS: CTAB on room air HEART/CARDIOVASCULAR: RRR. No murmur, rubs or gallops appreciated. ABDOMEN: +BS. NT/ND. SKIN: Ecchymoses at bilateral upper extremities. NEURO: No focal motor deficit. Follows all commands and is ambulatory. MUSCULOSKELETAL: No joint effusion EXTREMITIES: No cyanosis, clubbing or edema. PSYCH: Cooperative. - Constitutional Vitals: Temp Pulse Resp BP Pulse Ox 98.4 F 79 20 152/91 99 03/07/22 05:04 03/07/22 05:04 03/07/22 05:04 03/07/22 05:04 03/07/22 05:04 General appearance: Present: mild distress Results - Labs CBC & Chem 7: 03/07/22 05:13 03/05/22 12:55 Labs: Laboratory Last Values WBC 13.7 K/mm3 (4.5-11.0) H 03/07/22 05:13 RBC 4.35 M/mm3 (3.65-5.03) 03/07/22 05:13 Hgb 13.6 gm/dl (11.8-15.2) 03/07/22 05:13 Hct 40.7 % (35.5-45.6) 03/07/22 05:13 MCV 93 fl (84-94) 03/07/22 05:13 MCH 31 pg (28-32) 03/07/22 05:13 MCHC 34 % (32-34) 03/07/22 05:13 RDW 13.6 % (13.2-15.2) 03/07/22 05:13 Plt Count 4 K/mm3 (140-440) L* 03/07/22 05:13 Lymph % (Auto) 21.7 % (13.4-35.0) 03/05/22 12:55 Cloud % (Auto) 8.3 % (0.0-7.3) H 03/05/22 12:55 Eos % (Auto) 3.4 % (0.0-4.3) 03/05/22 12:55 Baso % (Auto) 1.7 % (0.0-1.8) 03/05/22 12:55 Lymph # (Auto) 0.8 K/mm3 (1.2-5.4) L 03/05/22 12:55 Cloud # (Auto) 0.3 K/mm3 (0.0-0.8) 03/05/22 12:55 Eos # (Auto) 0.1 K/mm3 (0.0-0.4) 03/05/22 12:55 Baso # (Auto) 0.1 K/mm3 (0.0-0.1) 03/05/22 12:55 Add Manual Diff Complete 03/06/22 15:00 Total Counted 100 03/06/22 15:00 Seg Neutrophils % [place] 03/06/22 15:00 Seg Neuts % (Manual) 96.0 % (40.0-70.0) H 03/06/22 15:00 Band Neutrophils % 1.0 % 03/06/22 15:00 Lymphocytes % (Manual) 3.0 % (13.4-35.0) L 03/06/22 15:00 Reactive Lymphs % (Man) 0 % 03/06/22 15:00 Monocytes % (Manual) 0 % (0.0-7.3) 03/06/22 15:00 Eosinophils % (Manual) 0 % (0.0-4.3) 03/06/22 15:00 Basophils % (Manual) 0 % (0.0-1.8) 03/06/22 15:00 Metamyelocytes % 0 % 03/06/22 15:00 Myelocytes % 0 % 03/06/22 15:00 Promyelocytes % 0 % 03/06/22 15:00 Blast Cells % 0 % 03/06/22 15:00 Nucleated RBC % Not Reportable 03/06/22 15:00 Seg Neutrophils # 2.3 K/mm3 (1.8-7.7) 03/05/22 12:55 Seg Neutrophils # Man 8.2 K/mm3 (1.8-7.7) H 03/06/22 15:00 Band Neutrophils # 0.1 K/mm3 03/06/22 15:00 Lymphocytes # (Manual) 0.3 K/mm3 (1.2-5.4) L 03/06/22 15:00 Abs React Lymphs (Man) 0.0 K/mm3 03/06/22 15:00 Monocytes # (Manual) 0.0 K/mm3 (0.0-0.8) 03/06/22 15:00 Eosinophils # (Manual) 0.0 K/mm3 (0.0-0.4) 03/06/22 15:00 Basophils # (Manual) 0.0 K/mm3 (0.0-0.1) 03/06/22 15:00 Metamyelocytes # 0.0 K/mm3 03/06/22 15:00 Myelocytes # 0.0 K/mm3 03/06/22 15:00 Promyelocytes # 0.0 K/mm3 03/06/22 15:00 Blast Cells # 0.0 K/mm3 03/06/22 15:00 WBC Morphology Not Reportable 03/06/22 15:00 Hypersegmented Neuts Not Reportable 03/06/22 15:00 Hyposegmented Neuts Not Reportable 03/06/22 15:00 Hypogranular Neuts Not Reportable 03/06/22 15:00 Smudge Cells Not Reportable 03/06/22 15:00 Toxic Granulation Not Reportable 03/06/22 15:00 Toxic Vacuolation Not Reportable 03/06/22 15:00 Dohle Bodies Not Reportable 03/06/22 15:00 Pelger-Huet Anomaly Not Reportable 03/06/22 15:00 Mahsa Rods Not Reportable 03/06/22 15:00 Platelet Estimate Consistent w auto 03/06/22 15:00 Clumped Platelets Not Reportable 03/06/22 15:00 Plt Clumps, EDTA Not Reportable 03/06/22 15:00 Large Platelets Not Reportable 03/06/22 15:00 Giant Platelets Not Reportable 03/06/22 15:00 Platelet Satelliting Not Reportable 03/06/22 15:00 Plt Morphology Comment Not Reportable 03/06/22 15:00 RBC Morphology Not Reportable 03/06/22 15:00 Dimorphic RBCs Not Reportable 03/06/22 15:00 Polychromasia Not Reportable 03/06/22 15:00 Hypochromasia Not Reportable 03/06/22 15:00 Poikilocytosis Not Reportable 03/06/22 15:00 Anisocytosis Not Reportable 03/06/22 15:00 Microcytosis Not Reportable 03/06/22 15:00 Macrocytosis Not Reportable 03/06/22 15:00 Spherocytes Not Reportable 03/06/22 15:00 Pappenheimer Bodies Not Reportable 03/06/22 15:00 Sickle Cells Not Reportable 03/06/22 15:00 Target Cells Not Reportable 03/06/22 15:00 Tear Drop Cells Not Reportable 03/06/22 15:00 Ovalocytes Not Reportable 03/06/22 15:00 Helmet Cells Not Reportable 03/06/22 15:00 Palmer-Tehama Bodies Not Reportable 03/06/22 15:00 [place] Rings Not Reportable 03/06/22 15:00 Windsor Cells Not Reportable 03/06/22 15:00 Bite Cells Not Reportable 03/06/22 15:00 Crenated Cell Not Reportable 03/06/22 15:00 Elliptocytes Not Reportable 03/06/22 15:00 Acanthocytes (Spur) Not Reportable 03/06/22 15:00 Rouleaux Not Reportable 03/06/22 15:00 Hemoglobin C Crystals Not Reportable 03/06/22 15:00 Schistocytes Not Reportable 03/06/22 15:00 Malaria parasites Not Reportable 03/06/22 15:00 Bobo Bodies Not Reportable 03/06/22 15:00 Hem Pathologist Commnt No 03/06/22 15:00 PT 13.0 Sec. (12.2-14.9) 03/05/22 12:55 INR 0.89 (0.87-1.13) 03/05/22 12:55 APTT 25.5 Sec. (24.2-36.6) 03/05/22 12:55 Fibrinogen 163 mg/dl (211-480) L 03/07/22 05:13 Sodium 141 mmol/L (137-145) 03/05/22 12:55 Potassium 3.7 mmol/L (3.6-5.0) 03/05/22 12:55 Chloride 107.8 mmol/L (98-107) H 03/05/22 12:55 Carbon Dioxide 25 mmol/L (22-30) 03/05/22 12:55 Anion Gap 12 mmol/L 03/05/22 12:55 BUN 10 mg/dL (9-20) 03/05/22 12:55 Creatinine 1.1 mg/dL (0.8-1.3) 03/05/22 12:55 Estimated GFR > 60 ml/min 03/05/22 12:55 BUN/Creatinine Ratio 9 % 03/05/22 12:55 Glucose 90 mg/dL (75-100) 03/05/22 12:55 Calcium 9.1 mg/dL (8.4-10.2) 03/05/22 12:55 Total Bilirubin 0.60 mg/dL (0.1-1.2) 03/05/22 12:55 AST 20 units/L (5-40) 03/05/22 12:55 ALT 27 units/L (7-56) 03/05/22 12:55 Alkaline Phosphatase 43 units/L (35-129) 03/05/22 12:55 Total Protein 6.7 g/dL (6.3-8.2) 03/05/22 12:55 Albumin 4.4 g/dL (3.9-5) 03/05/22 12:55 Albumin/Globulin Ratio 1.9 % 03/05/22 12:55 Blood Type A POSITIVE 03/05/22 16:35 Antibody Screen Negative 03/05/22 16:35 Yeboah/IV: Voiding Method Toilet Active Medications - Current Medications Current Medications: Generic Name Dose Route Start Last Admin Trade Name Freq PRN Reason Stop Dose Admin Acetaminophen 650 mg 03/05/22 17:33 Acetaminophen 325 Mg Tab PO Q4H PRN Pain MILD(1-3)/Fever >100.5/JARAMILLO Clonidine HCl 0.2 mg 03/06/22 11:00 03/06/22 21:37 Clonidine 0.2 Mg Tab PO 0.2 mg BID CASIMIRO Administration Hydromorphone HCl 0.5 mg 03/05/22 17:33 Hydromorphone 0.5 Mg/0.5 Ml Inj IV Q23H PRN Pain , Severe (7-10) Sodium Chloride 500 mls @ 0 mls/hr 03/07/22 07:15 Nacl 0.9% 500 Ml IV 03/08/22 07:14 ONCE NR As Directed Losartan Potassium 50 mg 03/06/22 11:00 03/06/22 11:46 Losartan 50 Mg Tab PO 50 mg QDAY CASIMIRO Administration Methylprednisolone Sodium Succinate 100 mg 03/06/22 10:00 03/06/22 21:38 Methylprednisolone Sod Succinate 125 Mg/2 Ml Inj IV 100 mg Q12HR CASIMIRO Administration Ondansetron HCl 4 mg 03/05/22 17:33 Ondansetron 4 Mg/2 Ml Inj IV Q8H PRN Nausea And Vomiting Oxycodone/Acetaminophen 1 tab 03/05/22 17:33 Oxycodone /Acetaminophen 5-325mg Tab PO Q16H PRN Pain, Moderate (4-6) Sodium Chloride 10 ml 03/05/22 22:00 03/06/22 21:46 Sodium Chloride 0.9% 10 Ml Flush Syringe IV 10 ml BID CASIMIRO Administration Sodium Chloride 10 ml 03/05/22 17:33 Sodium Chloride 0.9% 10 Ml Flush Syringe IV PRN PRN LINE FLUSH
[2022-03-07] MEDS: cloNIDine 0.2 MG TAB PO SCH ×2 (10:20→21:46)
[2022-03-07] MEDS: methylPREDNISolone Sod Succinate 125 MG/2 ML INJ IV SCH (10:21)
[2022-03-07] MEDS: LOSARTAN 50 MG TAB PO SCH (10:21)
--- NOTE | 2022-03-07 10:36 | Consultation ---
History of Present Illness - Reason for Consult Consult date: 03/07/22 - History of Present Illness 51 yo M PMhx nicotine dependence presented to the hospital after being found to have low platelets by his PCP. He was admitted here last week and left AMA as a result of the same diagnosis. We are consulted as the patient reported a recent tick bite. No imaging for review Review of Systems: Bold if positive, otherwise negative General: fevers, chills, rigors HEENT: visual disturbance, diplopia, eye pain Respiratory: cough, sputum, hemoptysis, shortness of breath Cardiovascular: chest pain, syncope Gastrointestinal: nausea, vomiting, diarrhea, abdominal pain Genitourinary: dysuria, hematuria, flank pain Musculoskeletal: neck pain, back pain, joint pain, edema Neurologic: headaches, seizures Hematologic: easy bruising or bleeding Endocrine: night sweats, acute weight loss Skin: rash, jaundice, redness Psychiatric: suicidal, homicidal ideation Past History Past Medical History: other (See HPI) Past Surgical History: No surgical history, Other (Reviewed) Social history: smoking Family history: hypertension Medications and Allergies Allergies Allergy/AdvReac Type Severity Reaction Status Date / Time No Known Allergies Allergy Verified 02/26/22 13:00 Home Medications Medication Instructions Recorded Confirmed Last Taken Type Doxycycline Hyclate [Lymepak] 100 mg PO BID 03/05/22 03/05/22 03/05/22 History Olmesartan Medoxomil [Benicar] 20 mg PO DAILY 03/05/22 03/05/22 03/05/22 History cloNIDine [Catapres] 0.2 mg PO BID 03/05/22 03/05/22 03/05/22 History Active Meds: Active Medications Acetaminophen (Acetaminophen 325 Mg Tab) 650 mg PO Q4H PRN PRN Reason: Pain MILD(1-3)/Fever >100.5/JARAMILLO Clonidine HCl (Clonidine 0.2 Mg Tab) 0.2 mg PO BID CASIMIRO Last Admin: 03/07/22 10:20 Dose: 0.2 mg Hydromorphone HCl (Hydromorphone 0.5 Mg/0.5 Ml Inj) 0.5 mg IV Q23H PRN PRN Reason: Pain , Severe (7-10) Sodium Chloride (Nacl 0.9% 500 Ml) 500 mls @ 0 mls/hr IV ONCE NR Stop: 03/08/22 07:14 Losartan Potassium (Losartan 50 Mg Tab) 50 mg PO QDAY [facility] Last Admin: 03/07/22 10:21 Dose: 50 mg Methylprednisolone Sodium Succinate (Methylprednisolone Sod Succinate 125 Mg/2 Ml Inj) 100 mg IV Q12HR [facility] Last Admin: 03/07/22 10:21 Dose: 100 mg Ondansetron HCl (Ondansetron 4 Mg/2 Ml Inj) 4 mg IV Q8H PRN PRN Reason: Nausea And Vomiting Oxycodone/Acetaminophen (Oxycodone /Acetaminophen 5-325mg Tab) 1 tab PO Q16H PRN PRN Reason: Pain, Moderate (4-6) Sodium Chloride (Sodium Chloride 0.9% 10 Ml Flush Syringe) 10 ml IV BID [facility] Last Admin: 03/07/22 10:21 Dose: 10 ml Sodium Chloride (Sodium Chloride 0.9% 10 Ml Flush Syringe) 10 ml IV PRN PRN PRN Reason: LINE FLUSH Physical Examination - Physical Exam Narrative exam: Physical Exam: Constitutional: Alert, cooperative. No acute distress Head, Ears, Nose: Normocephalic, atraumatic. External ears, nose normal Eyes: Conjunctivae/corneas clear. No icterus. No ptosis. Neck: Supple, no meningeal signs Oral: dentition fair, no thrush Cardiovascular: S1, S2 normal. Respiratory: Good air entry, clear to auscultation bilaterally GI: Soft, non-tender; bowel sounds normal. No peritoneal signs. Musculoskeletal: No pedal edema, no cyanosis. Skin: No rash or abscess Hem/Lymphatic: No palpable cervical or supraclavicular nodes. Psych: Mood ok. Affect normal Neurological: Awake, alert, oriented. No gross abnormality - Constitutional Vitals: Vital Signs Temp Pulse Resp BP Pulse Ox 98.4 F 83 20 178/108 99 03/07/22 05:04 03/07/22 10:20 03/07/22 05:04 03/07/22 10:20 03/07/22 05:04 Temperature -Last 24 Hours Temperature 98.4 F Temperature 98.2 F Temperature 98.8 F Temperature 98.8 F Temperature 98.4 F Temperature 98.4 F Temperature 98.8 F Results - Labs CBC & Chem 7: 03/07/22 05:13 03/05/22 12:55 Labs: Abnormal lab results 03/06/22 03/07/22 03/07/22 Range/Units 15:00 05:13 05:13 WBC 13.7 H (4.5-11.0) K/mm3 MCH 33 H (28-32) pg MCHC 35 H (32-34) % Plt Count 7 L* 4 L* (140-440) K/mm3 Seg Neuts % (Manual) 96.0 H (40.0-70.0) % Lymphocytes % (Manual) 3.0 L (13.4-35.0) % Seg Neutrophils # Man 8.2 H (1.8-7.7) K/mm3 Lymphocytes # (Manual) 0.3 L (1.2-5.4) K/mm3 Fibrinogen 163 L (211-480) mg/dl Assessment and Plan Cultures: None A/P: 51 yo M PMhx nicotine dependence now with: #ITP: haematology on board. Given his strong family history of autoimmune diseases presume this cause rather than infectious. Should r/o HIV as well. #Tick bite: out of window for prophylaxis. Lyme disease testing pending. Lyme is not terribly common in [place], as such doubt it is contributing to his ITP. Regardless, will await testing and if positive will treat with doxycycline. Recs: -Follow up Lyme testing -Ordered HIV -No need for antibiosis at present. Thank you for the consult, we will continue to follow. MD Santana [facility] O: [phone] F: [phone]
[2022-03-07] MEDS ORDERED: IMMUNE GLOBULIN G/GLY/IGA AVG 46 10 GM/100 ML VIAL IV ONE (13:00)
--- NOTE | 2022-03-07 15:36 | Hem/Onc Progress Note ---
Subjective Date of service: 03/07/22 Interval history: Heme Progress Note CPT 64917 Dx ITP 51yo male with low platelets Past medical history of nicotine dependence, HTN, and recent acute ITP Family history of autoimmune Lupus, father with NHL S/P multiple plt transfusions, IVIG 02/27/22, solu medrol Hematology following for thrombocytopenia. No bleeding noted or reported. DATA REVIEWED BELOW IMP: Low platelets likely due to acute ITP Doubt heme malignancy PLAN: IVIG today Continue solu medrol 1mg/kg BID IV Transfuse 1 dose of platelets whenever plts <20 Plan for Nplate if refractory AM labs to include fibrinogen -Transfuse 10 units of cryo if fibrinogen <150 Follow GARCIA testing Outpatient hematology follow up for Doptelet once stable. Laboratory Last Values WBC 13.7 K/mm3 (4.5-11.0) H 03/07/22 05:13 Hgb 13.6 gm/dl (11.8-15.2) 03/07/22 05:13 Hct 40.7 % (35.5-45.6) 03/07/22 05:13 MCV 93 fl (84-94) 03/07/22 05:13 Plt Count 4 K/mm3 (140-440) L* 03/07/22 05:13 [place] % (Auto) 8.3 % (0.0-7.3) H 03/05/22 12:55 Lymph # (Auto) 0.8 K/mm3 (1.2-5.4) L 03/05/22 12:55 Seg Neuts % (Manual) 96.0 % (40.0-70.0) H 03/06/22 15:00 Lymphocytes % (Manual) 3.0 % (13.4-35.0) L 03/06/22 15:00 Seg Neutrophils # Man 8.2 K/mm3 (1.8-7.7) H 03/06/22 15:00 Lymphocytes # (Manual) 0.3 K/mm3 (1.2-5.4) L 03/06/22 15:00 PT 13.0 Sec. (12.2-14.9) 03/05/22 12:55 INR 0.89 (0.87-1.13) 03/05/22 12:55 APTT 25.5 Sec. (24.2-36.6) 03/05/22 12:55 Fibrinogen 163 mg/dl (211-480) L 03/07/22 05:13 Creatinine 1.1 mg/dL (0.8-1.3) 03/05/22 12:55 AST 20 units/L (5-40) 03/05/22 12:55 ALT 27 units/L (7-56) 03/05/22 12:55 Alkaline Phosphatase 43 units/L (35-129) 03/05/22 12:55 Albumin/Globulin Ratio 1.9 % 03/05/22 12:55 Blood Type A POSITIVE 03/05/22 16:35 Antibody Screen Negative 03/05/22 16:35 Objective - Constitutional Vitals: Last Vital Signs Temp 98.8 F 03/07/22 11:06 Pulse 79 03/07/22 11:06 Resp 22 03/07/22 11:06 BP 175/112 03/07/22 11:06 Pulse Ox 95 03/07/22 11:06 - Labs Lab Results: Laboratory Results - last 24 hr 03/05/22 03/06/22 03/07/22 16:35 15:00 05:13 WBC 8.5 RBC 4.29 Hgb 14.1 Hct 40.1 MCV 94 MCH 33 H MCHC 35 H RDW 13.5 Plt Count 7 L* Add Manual Diff Complete Total Counted 100 Seg Neutrophils % Auto Porter Seg Neuts % (Manual) 96.0 H Band Neutrophils % 1.0 Lymphocytes % (Manual) 3.0 L Reactive Lymphs % (Man) 0 Monocytes % (Manual) 0 Eosinophils % (Manual) 0 Basophils % (Manual) 0 Metamyelocytes % 0 Myelocytes % 0 Promyelocytes % 0 Blast Cells % 0 Nucleated RBC % Not Reportable Seg Neutrophils # Man 8.2 H Band Neutrophils # 0.1 Lymphocytes # (Manual) 0.3 L Abs React Lymphs (Man) 0.0 Monocytes # (Manual) 0.0 Eosinophils # (Manual) 0.0 Basophils # (Manual) 0.0 Metamyelocytes # 0.0 Myelocytes # 0.0 Promyelocytes # 0.0 Blast Cells # 0.0 WBC Morphology Not Reportable Hypersegmented Neuts Not Reportable Hyposegmented Neuts Not Reportable Hypogranular Neuts Not Reportable Smudge Cells Not Reportable Toxic Granulation Not Reportable Toxic Vacuolation Not Reportable Dohle Bodies Not Reportable Pelger-Huet Anomaly Not Reportable Mahsa Rods Not Reportable Platelet Estimate Consistent w auto Clumped Platelets Not Reportable Plt Clumps, EDTA Not Reportable Large Platelets Not Reportable Giant Platelets Not Reportable Platelet Satelliting Not Reportable Plt Morphology Comment Not Reportable RBC Morphology Not Reportable Dimorphic RBCs Not Reportable Polychromasia Not Reportable Hypochromasia Not Reportable Poikilocytosis Not Reportable Anisocytosis Not Reportable Microcytosis Not Reportable Macrocytosis Not Reportable Spherocytes Not Reportable Pappenheimer Bodies Not Reportable Sickle Cells Not Reportable Target Cells Not Reportable Tear Drop Cells Not Reportable Ovalocytes Not Reportable Helmet Cells Not Reportable Palmer-Galax Bodies Not Reportable [place] Rings Not Reportable [place] Cells Not Reportable Bite Cells Not Reportable Crenated Cell Not Reportable Elliptocytes Not Reportable Acanthocytes (Spur) Not Reportable Rouleaux Not Reportable Hemoglobin C Crystals Not Reportable Schistocytes Not Reportable Malaria parasites Not Reportable Bobo Bodies Not Reportable Hem Pathologist Commnt No Fibrinogen 163 L Blood Type A POSITIVE Antibody Screen Negative 03/07/22 05:13 WBC 13.7 H RBC 4.35 Hgb 13.6 Hct 40.7 MCV 93 MCH 31 MCHC 34 RDW 13.6 Plt Count 4 L* Add Manual Diff Total Counted Seg Neutrophils % Seg Neuts % (Manual) Band Neutrophils % Lymphocytes % (Manual) Reactive Lymphs % (Man) Monocytes % (Manual) Eosinophils % (Manual) Basophils % (Manual) Metamyelocytes % Myelocytes % Promyelocytes % Blast Cells % Nucleated RBC % Seg Neutrophils # Man Band Neutrophils # Lymphocytes # (Manual) Abs React Lymphs (Man) Monocytes # (Manual) Eosinophils # (Manual) Basophils # (Manual) Metamyelocytes # Myelocytes # Promyelocytes # Blast Cells # WBC Morphology Hypersegmented Neuts Hyposegmented Neuts Hypogranular Neuts Smudge Cells Toxic Granulation Toxic Vacuolation Dohle Bodies Pelger-Huet Anomaly Mahsa Rods Platelet Estimate Clumped Platelets Plt Clumps, EDTA Large Platelets Giant Platelets Platelet Satelliting Plt Morphology Comment RBC Morphology Dimorphic RBCs Polychromasia Hypochromasia Poikilocytosis Anisocytosis Microcytosis Macrocytosis Spherocytes Pappenheimer Bodies Sickle Cells Target Cells Tear Drop Cells Ovalocytes Helmet Cells Palmer-Galax Bodies [place] Rings [place] Cells Bite Cells Crenated Cell Elliptocytes Acanthocytes (Spur) Rouleaux Hemoglobin C Crystals Schistocytes Malaria parasites Bobo Bodies Hem Pathologist Commnt Fibrinogen Blood Type Antibody Screen Medications & Allergies - Medications Allergies/Adverse Reactions: Allergies No Known Allergies Allergy (Verified 02/26/22 13:00) Home Medications: Home Medications Medication Instructions Recorded Confirmed Last Taken Type Doxycycline Hyclate [Lymepak] 100 mg PO BID 03/05/22 03/05/22 03/05/22 History Olmesartan Medoxomil [Benicar] 20 mg PO DAILY 03/05/22 03/05/22 03/05/22 History cloNIDine [Catapres] 0.2 mg PO BID 03/05/22 03/05/22 03/05/22 History Active Medications: Generic Name Dose Route Start Last Admin Trade Name Freq PRN Reason Stop Dose Admin Acetaminophen 650 mg 03/05/22 17:33 Acetaminophen 325 Mg Tab PO Q4H PRN Pain MILD(1-3)/Fever >100.5/JARAMILLO Clonidine HCl 0.2 mg 03/06/22 11:00 03/07/22 10:20 Clonidine 0.2 Mg Tab PO 0.2 mg BID CASIMIRO Administration Hydromorphone HCl 0.5 mg 03/05/22 17:33 Hydromorphone 0.5 Mg/0.5 Ml Inj IV Q23H PRN Pain , Severe (7-10) Sodium Chloride 500 mls @ 0 mls/hr 03/07/22 07:15 Nacl 0.9% 500 Ml IV 03/08/22 07:14 ONCE NR As Directed Losartan Potassium 50 mg 03/06/22 11:00 03/07/22 10:21 Losartan 50 Mg Tab PO 50 mg QDAY CASIMIRO Administration Methylprednisolone Sodium Succinate 100 mg 03/06/22 10:00 03/07/22 10:21 Methylprednisolone Sod Succinate 125 Mg/2 Ml Inj IV 100 mg Q12HR CASIMIRO Administration Ondansetron HCl 4 mg 03/05/22 17:33 Ondansetron 4 Mg/2 Ml Inj IV Q8H PRN Nausea And Vomiting Oxycodone/Acetaminophen 1 tab 03/05/22 17:33 Oxycodone /Acetaminophen 5-325mg Tab PO Q16H PRN Pain, Moderate (4-6) Sodium Chloride 10 ml 03/05/22 22:00 03/07/22 10:21 Sodium Chloride 0.9% 10 Ml Flush Syringe IV 10 ml BID CASIMIRO Administration Sodium Chloride 10 ml 03/05/22 17:33 Sodium Chloride 0.9% 10 Ml Flush Syringe IV PRN PRN LINE FLUSH
[2022-03-07] MEDS: dexAMETHasone 20 MG in SODIUM CHLORIDE 0.9% 50 ML IV SCH (22:38)
[2022-03-08] MEDS: hydrALAZINE 20 MG/1 ML INJ IV PRN ×2 (06:38→11:34)
[2022-03-08 09:19] LABS: Hematocrit 40.6 % (35.5-45.6); Mean Corpuscular HGB Conc 35 % (32-34); Mean Corpuscular Volume 94 fl (84-94); Red Blood Count 4.33 M/mm3 (3.65-5.03); Red Cell Distribution Width 13.6 % (13.2-15.2)
[2022-03-08] MEDS: dexAMETHasone 20 MG in SODIUM CHLORIDE 0.9% 50 ML IV SCH ×2 (09:25→21:33)
[2022-03-08] MEDS ORDERED: NPLATE IV ONE (09:30)
[2022-03-08] MEDS ORDERED: NPLATE SUB-Q ONE (09:30)
[2022-03-08 09:41] LABS: Platelet Count 6 K/mm3 (140-440)
--- NOTE | 2022-03-08 09:50 | Hem/Onc Progress Note ---
Subjective Date of service: 03/08/22 Interval history: Heme Progress Note Seen via [facility] CPT 80154 Dx ITP 51yo male with low platelets Past medical history of nicotine dependence, HTN, and recent acute ITP Family history of autoimmune Lupus, father of NHL, daughter of leukemia. S/P multiple plt transfusions, IVIG 02/27/22, solu medrol Now on Decadron Hematology following for thrombocytopenia. No bleeding noted or reported. Reports wanting to leave AMA; Risk of with severe low plt count discussed with patient. Plan for Decadron, IVIG and Nplate discussed. DATA REVIEWED BELOW IMP: Low platelets likely due to acute ITP Doubt heme malignancy PLAN: Decadron 20mg Q12H IVIG and Nplate 250mcg MORE Transfuse 1 dose of platelets whenever plts <20 Follow GARCIA testing Recommend outpatient hematology follow up for Doptelet once stable. Case d/w Hospitalist Dr. Levin and Dr. Lucian Fung. Laboratory Last Values WBC 15.7 K/mm3 (4.5-11.0) H 03/08/22 08:15 Hgb 14.0 gm/dl (11.8-15.2) 03/08/22 08:15 Hct 40.6 % (35.5-45.6) 03/08/22 08:15 MCV 94 fl (84-94) 03/08/22 08:15 Plt Count 6 K/mm3 (140-440) L* 03/08/22 08:15 [place] % (Auto) 8.3 % (0.0-7.3) H 03/05/22 12:55 Lymph # (Auto) 0.8 K/mm3 (1.2-5.4) L 03/05/22 12:55 Seg Neuts % (Manual) 96.0 % (40.0-70.0) H 03/06/22 15:00 Lymphocytes % (Manual) 3.0 % (13.4-35.0) L 03/06/22 15:00 Seg Neutrophils # Man 8.2 K/mm3 (1.8-7.7) H 03/06/22 15:00 Lymphocytes # (Manual) 0.3 K/mm3 (1.2-5.4) L 03/06/22 15:00 PT 13.0 Sec. (12.2-14.9) 03/05/22 12:55 INR 0.89 (0.87-1.13) 03/05/22 12:55 APTT 25.5 Sec. (24.2-36.6) 03/05/22 12:55 Fibrinogen 172 mg/dl (211-480) L 03/08/22 08:15 Nasal Screen MRSA (PCR) Negative (Negative) 03/06/22 02:50 Blood Type A POSITIVE 03/05/22 16:35 Antibody Screen Negative 03/05/22 16:35 Objective - Constitutional Vitals: Last Vital Signs Temp 99 F 03/08/22 09:19 Pulse 86 03/08/22 09:19 Resp 14 03/08/22 09:19 BP 163/109 03/08/22 09:19 Pulse Ox 99 03/08/22 09:19 - Labs Lab Results: Laboratory Results - last 24 hr 03/05/22 03/06/22 03/08/22 16:35 02:50 08:15 WBC 15.7 H RBC 4.33 Hgb 14.0 Hct 40.6 MCV 94 MCH 32 MCHC 35 H RDW 13.6 Plt Count 6 L* Fibrinogen Nasal Screen MRSA (PCR) Negative Blood Type A POSITIVE Antibody Screen Negative 03/08/22 08:15 WBC RBC Hgb Hct MCV MCH MCHC RDW Plt Count Fibrinogen 172 L Nasal Screen MRSA (PCR) Blood Type Antibody Screen Medications & Allergies - Medications Allergies/Adverse Reactions: Allergies No Known Allergies Allergy (Verified 02/26/22 13:00) Home Medications: Home Medications Medication Instructions Recorded Confirmed Last Taken Type Doxycycline Hyclate [Lymepak] 100 mg PO BID 03/05/22 03/05/22 03/05/22 History Olmesartan Medoxomil [Benicar] 20 mg PO DAILY 03/05/22 03/05/22 03/05/22 History cloNIDine [Catapres] 0.2 mg PO BID 03/05/22 03/05/22 03/05/22 History Active Medications: Generic Name Dose Route Start Last Admin Trade Name Freq PRN Reason Stop Dose Admin Acetaminophen 650 mg 03/05/22 17:33 Acetaminophen 325 Mg Tab PO Q4H PRN Pain MILD(1-3)/Fever >100.5/JARAMILLO Hydralazine HCl 10 mg 03/08/22 05:57 03/08/22 06:38 Hydralazine 20 Mg/1 Ml Inj IV 10 mg Q6HR PRN Administration Hypertension Hydromorphone HCl 0.5 mg 03/05/22 17:33 Hydromorphone 0.5 Mg/0.5 Ml Inj IV Q23H PRN Pain , Severe (7-10) Dexamethasone 20 mg/ Sodium 55 mls @ 100 mls/hr 03/07/22 22:00 03/08/22 09:25 Chloride IV 100 mls/hr Q12HR CASIMIRO Administration Losartan Potassium 100 mg 03/08/22 10:00 03/08/22 09:26 Losartan 50 Mg Tab PO 100 mg QDAY CASIMIRO Administration Miscellaneous Medication 250 mcg 03/08/22 09:30 Nplate SUB-Q 03/08/22 09:31 ONCE ONE Nifedipine 60 mg 03/08/22 10:00 03/08/22 09:26 Nifedipine Xl 60 Mg Tab PO 60 mg QDAY CASIMIRO Administration Ondansetron HCl 4 mg 03/05/22 17:33 Ondansetron 4 Mg/2 Ml Inj IV Q8H PRN Nausea And Vomiting Oxycodone/Acetaminophen 1 tab 03/05/22 17:33 Oxycodone /Acetaminophen 5-325mg Tab PO Q16H PRN Pain, Moderate (4-6) Sodium Chloride 10 ml 03/05/22 22:00 03/08/22 09:26 Sodium Chloride 0.9% 10 Ml Flush Syringe IV 10 ml BID CASIMIRO Administration Sodium Chloride 10 ml 03/05/22 17:33 Sodium Chloride 0.9% 10 Ml Flush Syringe IV PRN PRN LINE FLUSH
[2022-03-08] MEDS ORDERED: LOSARTAN 50 MG TAB PO SCH (10:00)
[2022-03-08] MEDS ORDERED: NIFEdipine XL 60 MG TAB PO SCH (10:00)
[2022-03-08] MEDS ORDERED: IGA AVG IV ONE (11:00)
[2022-03-08] MEDS ORDERED: IMMUNE GLOBUL IV ONE (11:00)
[2022-03-08] MEDS ORDERED: GLY IV ONE (11:00)
--- NOTE | 2022-03-08 11:25 | Progress Note ---
Assessment and Plan Cultures: None A/P: 51 yo M PMhx nicotine dependence now with: #ITP: haematology on board. Given his strong family history of autoimmune diseases presume this cause rather than infectious. Should r/o HIV as well. #Tick bite: out of window for prophylaxis. Lyme disease testing pending. Lyme is not terribly common in [place], as such doubt it is contributing to his ITP. Regardless, will await testing and if positive will treat with doxycycline. Recs: -Follow up Lyme testing -Follow up HIV testing -No need for antibiosis at present. Thank you for the consult, we will continue to follow. Froy Schwab MD [facility] ([facility]) O: [phone] F: [phone] Subjective Date of service: 03/08/22 Interval history: Afebrile, white count remains elevated at 15.7. Objective - Exam Narrative Exam: Physical Exam: Constitutional: Alert, cooperative. No acute distress Head, Ears, Nose: Normocephalic, atraumatic. External ears, nose normal Eyes: Conjunctivae/corneas clear. No icterus. No ptosis. Neck: Supple, no meningeal signs Oral: dentition fair, no thrush Cardiovascular: S1, S2 normal. Respiratory: Good air entry, clear to auscultation bilaterally GI: Soft, non-tender; bowel sounds normal. No peritoneal signs. Musculoskeletal: No pedal edema, no cyanosis. Skin: No rash or abscess Hem/Lymphatic: No palpable cervical or supraclavicular nodes. Psych: Mood ok. Affect normal Neurological: Awake, alert, oriented. No gross abnormality - Constitutional Vitals: Vital Signs Temp Pulse Resp BP Pulse Ox 99 F 86 14 163/109 99 03/08/22 09:19 03/08/22 09:19 03/08/22 09:19 03/08/22 09:19 03/08/22 09:19 Temperature -Last 24 Hours Temperature 99 F Temperature 98.3 F Temperature 99.1 F - Labs CBC & Chem 7: 03/08/22 08:15 03/05/22 12:55 Labs: Abnormal lab results 03/08/22 03/08/22 Range/Units 08:15 08:15 WBC 15.7 H (4.5-11.0) K/mm3 MCHC 35 H (32-34) % Plt Count 6 L* (140-440) K/mm3 Fibrinogen 172 L (211-480) mg/dl
--- NOTE | 2022-03-08 15:14 | Discharge Summary ---
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 Procedures: None. Hospital course: The patient is a 51 YO Male with nicotine dependence, ITP presents to ED for evaluation. Patient reports "my platelets are low. Patient states that he was seen and evaluated by his primary care physician today and was told to seek medical care. Patient admitted to [facility] on 02/26/2022 for presumed diagnosis of ITP and left AMA prior to completion of work-up and treatment plan. Patient transported to [facility] via private vehicle for further care and evaluation of the aforementioned symptoms. The patient was seen and evaluated emergency department. All lab and imaging studies reviewed. Patient found to have a platelet count of 5 while in the emergency department. Patient admitted to medical floor due to increased risk of worsening symptoms and for medical stabilization. Patient initiated on transfusion of platelets while in the emergency department. Patient denies fever, chills, chest pain, palpitation, productive cough, skin rash, recent contact, headache, blurred vision, trauma, active bleeding. Prior admission on 02/26/2022 reviewed. During his original presentation (02/26/2022) patient described having numbness and paresthesia of his left thumb, and teleneurology was consulted for further evaluation. The decision was made not to administer tPA. The patient was incidentally found to have a platelet level of 4000 with a creatinine of 1.6. Hematology was subsequently consulted with platelet transfusions being initiated. Despite multiple platelet transfusions, the patient's platelet count improved to 5 (status post a total of 10 units/jumbo platelets and 1 cryopre cipitate being transfused). Otology was concern for ITP given his consumption of platelets despite multiple transfusions. Patient was planned to undergo IVIG and IV Solu-Medrol 1 kellen per cake twice daily. Infectious disease was also consulted due to the potential of the patient having Lyme disease secondary to recent tick bite. Prior to the full administrative doses, the patient left [facility] on 03/01/2022. Patient then returned on 03/05/2022 for resumption of his care, and the patient was transfused platelets. Patient made the decision to leave [facility] on 03/08/2022. During his previous hospitalization, patient underwent CT head noncontrast (02/26/2022), chest x-ray (02/26/2022), and x-ray of left thumb (02/26/2022) that was found to be unremarkable. Patient underwent CT abdomen and pelvis with contrast (02/26/2022) revealing" no acute findings and indeterminate right hepatic lobe hypodensities that could represent cysts. Nonemergent MRI abdomen with and without contrast would be helpful for further characterization". Patient also underwent carotid Dopplers that were found to be unremarkable, and TTE that was found to be unremarkable (EF 50-60% without any indication of PFO). Lastly renal ultrasounds were performed (02/28/2022) was also found to be unremarkable. 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, thrombocytopenia, recent tick bite, uncontrolled hypertension, leukocytosis Time spent for discharge: 45 min Core Measure Documentation - Palliative Care Palliative Care/ Comfort Measures: Not Applicable - Core Measures Any of the following diagnoses?: none Exam - Constitutional Vitals: Temp Pulse Resp BP Pulse Ox 98.7 F 93 H 24 164/106 98 03/08/22 11:21 03/08/22 11:21 03/08/22 11:21 03/08/22 11:21 03/08/22 11:21 General appearance: Present: no acute distress, well-nourished - EENT Eyes: Present: PERRL, EOM intact ENT: hearing intact, clear oral mucosa, dentition normal - Neck Neck: Present: supple, normal ROM - Respiratory Respiratory effort: normal Respiratory: bilateral: CTA - Cardiovascular Rhythm: regular Heart Sounds: Present: S1 & S2 - Extremities Extremities: no ischemia, pulses intact, pulses symmetrical, No edema, normal temperature, normal color, Full ROM Peripheral Pulses: within normal limits - Abdominal General gastrointestinal: Present: soft, non-tender, non-distended, normal bowel sounds Male genitourinary: Present: deferred - Rectal Rectal Exam: deferred - Integumentary Integumentary: Present: clear, warm, dry - Musculoskeletal Musculoskeletal: strength equal bilaterally - Psychiatric Psychiatric: appropriate mood/affect, intact judgment & insight, memory intact, cooperative - Neurologic Neurologic: CNII-XII intact, moves all extremities - Allied Health Allied health notes reviewed: nursing Plan Activity: advance as tolerated Diet: low salt Additional Instructions: The patient is a 51 YO Male with nicotine dependence, ITP presents to ED for evaluation. Patient reports "my platelets are low. Patient states that he was seen and evaluated by his primary care physician today and was told to seek medical care. Patient admitted to [facility] on 02/26/2022 for presumed diagnosis of ITP and left AMA prior to completion of work-up and treatment plan. Patient transported to [facility] via private vehicle for further care and evaluation of the aforementioned symptoms. The patient was seen and evaluated emergency department. All lab and imaging studies reviewed. Patient found to have a platelet count of 5 while in the emergency department. Patient admitted to medical floor due to increased risk of worsening symptoms and for medical stabilization. Patient initiated on transfusion of platelets while in the emergency department. Patient denies fever, chills, chest pain, palpitation, productive cough, skin rash, recent contact, headache, blurred vision, trauma, active bleeding. Prior admission on 02/26/2022 reviewed. During his original presentation (02/26/2022) patient described having numbness and paresthesia of his left thumb, and teleneurology was consulted for further evaluation. The decision was made not to administer tPA. The patient was incidentally found to have a platelet level of 4000 with a creatinine of 1.6. Hematology was subsequently consulted with platelet transfusions being initiated. Despite multiple platelet transfusions, the patient's platelet count improved to 5 (status post a total of 10 units/jumbo platelets and 1 cryoprecipitate being transfused). Otology was concern for ITP given his consumption of platelets despite multiple transfusions. Patient was planned to undergo IVIG and IV Solu-Medrol 1 kellen per cake twice daily. Infectious disease was also consulted due to the potential of the patient having Lyme disease secondary to recent tick bite. Prior to the full administrative doses, the patient left AMA on 03/01/2022. Patient then returned on 03/05/2022 for resumption of his care, and the patient was transfused platelets. Patient made the decision to leave AMA on 03/08/2022. During his previous hospitalization, patient underwent CT head noncontrast (02/26/2022), chest x-ray (02/26/2022), and x-ray of left thumb (02/26/2022) that was found to be unremarkable. Patient underwent CT abdomen and pelvis with contrast (02/26/2022) revealing" no acute findings and indeterminate right hepatic lobe hypodensities that could represent cysts. Nonemergent MRI abdomen with and without contrast would be helpful for further characterization". Patient also underwent carotid Dopplers that were found to be unremarkable, and TTE that was found to be unremarkable (EF 50-60% without any indication of PFO). Lastly renal ultrasounds were performed (02/28/2022) was also found to be unremarkable. Care Plan Goals: Patient is medically clear for discharge. Assessment: The patient is a 51 YO Male with nicotine dependence, ITP presents to ED for evaluation. Patient reports "my platelets are low. Patient states that he was seen and evaluated by his primary care physician today and was told to seek medical care. Patient admitted to [facility] on 02/26/2022 for presumed diagnosis of ITP and left AMA prior to completion of work-up and treatment plan. Patient transported to [facility] via private vehicle for further care and evaluation of the aforementioned symptoms. The patient was seen and evaluated emergency department. All lab and imaging studies reviewed. Patient found to have a platelet count of 5 while in the emergency department. Patient admitted to medical floor due to increased risk of worsening symptoms and for medical stabilization. Patient initiated on transfusion of platelets while in the emergency department. Patient denies fever, chills, chest pain, palpitation, productive cough, skin rash, recent contact, headache, blurred vision, trauma, active bleeding. Prior admission on 02/26/2022 reviewed. During his original presentation (02/26/2022) patient described having numbness and paresthesia of his left thumb, and teleneurology was consulted for further evaluation. The decision was made not to administer tPA. The patient was incidentally found to have a platelet level of 4000 with a creatinine of 1.6. Hematology was subsequently consulted with platelet transfusions being initiated. Despite multiple platelet transfusions, the patient's platelet count improved to 5 (status post a total of 10 units/jumbo platelets and 1 cryoprecipitate being transfused). Otology was concern for ITP given his consumption of platelets despite multiple transfusions. Patient was planned to undergo IVIG and IV Solu-Medrol 1 kellen per cake twice daily. Infectious disease was also consulted due to the potential of the patient having Lyme disease secondary to recent tick bite. Prior to the full administrative doses, the patient left AMA on 03/01/2022. Patient then returned on 03/05/2022 for resumption of his care, and the patient was transfused platelets. Patient made the decision to leave AMA on 03/08/2022. During his previous hospitalization, patient underwent CT head noncontrast (02/26/2022), chest x-ray (02/26/2022), and x-ray of left thumb (02/26/2022) that was found to be unremarkable. Patient underwent CT abdomen and pelvis with contrast (02/26/2022) revealing" no acute findings and indeterminate right hepatic lobe hypodensities that could represent cysts. Nonemergent MRI abdomen with and without contrast would be helpful for further characterization". Patient also underwent carotid Dopplers that were found to be unremarkable, and TTE that was found to be unremarkable (EF 50-60% without any indication of PFO). Lastly renal ultrasounds were performed (02/28/2022) was also found to be unremarkable. Follow up with: THOMPSON ISAACS MD [Primary Care Provider] - 3-5 Days Prescriptions: Losartan [Cozaar] 100 mg PO QDAY #60 tablet NIFEdipine XL [Procardia Xl] 60 mg PO QDAY #30 tablet
[2022-03-08] MEDS ORDERED: NIFEdipine XL 30 MG TAB PO ONE (17:00)
[2022-03-09 00:17] VITALS: BP 151/101
== END 2022-03-08 22:15 | disposition home or self-care (01) | DRG 813 ==
LOC: ED 09:59 → 3A 17:33
PROVIDERS: ADMIT Internal Medicine; ATTEND Student in an Organized Health Care Education/Training Program
DX: D69.3 Immune thrombocytopenic purpura (principal); F17.200 Nicotine dependence, unspecified, uncomplicated; I10 Essential (primary) hypertension; D72.829 Elevated white blood cell count, unspecified
CPT/HCPCS: 36415; 80053; 85007; 85025; 85027; 85384; 85610; 85730; 86038; 86850; 86900; 86901; 87116; 87641; 87806; 96374; 99285; G0378; J3490; J0360; J1100; J1561; J2920; J2930; J7040; P9035